=== PATIENT | male | born 1950 ===

== ENCOUNTER 2016-08-19 13:44 | Inpatient (IN) ==
--- NOTE | 2016-08-19 13:52 | Emergency Department Note ---
Disposition Clinical Impression: History of CVA (cerebrovascular accident) Altered mental status Qualifiers: Altered mental status type: unspecified Qualified Code(s): R41.82 - Altered mental status, unspecified Dementia Qualifiers: Dementia type: unspecified type Dementia behavioral disturbance: without behavioral disturbance Qualified Code(s): F03.90 - Unspecified dementia without behavioral disturbance UTI (urinary tract infection) Qualifiers: Urinary tract infection type: site unspecified Hematuria presence: without hematuria Qualified Code(s): N39.0 - Urinary tract infection, site not specified Chronic kidney disease Qualifiers: Chronic kidney disease stage: unspecified stage Qualified Code(s): N18.9 - Chronic kidney disease, unspecified Disposition: Admitted As Inpatient Condition: Fair Time of Disposition: 19:35 Altered Mental Status HPI - General Chief Complaint: ED Altered Mental Status Stated Complaint: ams Time Seen by Provider: 08/19/16 13:47 Source: EMS Mode of arrival: EMS Limitations: altered mental status Nursing Notes Reviewed: Yes Vital Signs Reviewed: Yes - History of Present Illness HPI Narrative: 66 year old male hx of dementia, CVA left hemispheric stroke presents for [facility] No information was provided upon arrival. EMS reported the patient is typically altered and [facility] was concerns of worsening altered mental status. This was reported from EMS. Patient is typically nonverbal but has been increasingly hollering. Will attempt to gather information from the [facility]. On the phone, [facility] report states the patient is altered but he is more actively altered. Patient has been more active and getting out of bed. These concern was for a repeat stroke. Patient does have a history of a CVA. Patient's last known well was approximately last night around 9:00. Patient is a full code. - Related Data Allergies Allergy/AdvReac Type Severity Reaction Status Date / Time Unable to Assess Allergy Unverified 08/19/16 14:16 Limitations: ROS unobtainable due to patients medical condition Past Medical History - Past Medical History Medical history: Reports: hypertension, renal disease Surgical history: Reports: non-contributory Psychiatric history: Reports: PTSD Physical Exam - General Limitations: altered mental status General appearance: alert, other (Patient chronically ill) - Head Head exam: normocephalic, other (Aged ecchymosis over the right maxillary and orbital) - Eye Eye exam: Present: normal appearance, EOMI. Absent: scleral icterus - ENT ENT exam: normal exam, mucous membranes moist - Neck Neck exam: Present: normal inspection, trachea midline - Chest Chest inspection: Present: normal inspection, symmetric chest wall rise. Absent : tenderness - Respiratory Respiratory exam: Present: other (Diffusely decreased breath sounds. Diminished.) - Cardiovascular Cardiovascular exam: Present: normal rhythm. Absent: systolic murmur - Abdominal Exam Abdominal exam: Present: soft, Non-Tender - Extremities Exam Extremities exam: Present: normal inspection. Absent: pedal edema - Expanded Lower Extremity Exam Neurovascular/Tendon exam: Present: normal capillary refill - Neurological Exam Neurological exam: Present: alert, other (Moves all extremities. Does not follow commands.). Absent: oriented X3 - Skin Skin exam: Present: warm, dry, intact, normal color Course Course Narrative: 66-year-old male with a history of altered mental status presents for evaluation of worsening altered mental status. [facility] Initially no history was obtained by EMS is well as patient. No family available at bedside. Patient was controlling his airway. Patient showed no immediate signs of decompensation. Patient had initial blood sugar which was non-concerning. [facility]oke with the [facility] regarding patient's past medical history and their concerns. Their concern was that the patient possibly had another stroke. Patient does have a history of CVA. Last known well was last night at 9 PM. Patient will get altered metal status workup including a head CT, lab work urinalysis chest x-ray EKG. Disposition is pending. - Reevaluation(s) Reevaluation #1: No change in patient condition. Time: 15:31 Reevaluation #2: Just obtained med list from the [facility]. Time: 16:58 Reevaluation #3: Awaiting the results of the cath U/A Time: 18:29 Vital Signs Temperature 96.8 F L 08/19/16 13:46 Pulse Rate 76 08/19/16 13:46 Respiratory Rate 18 08/19/16 13:46 Blood Pressure 127/91 08/19/16 13:46 O2 Sat by Pulse Oximetry 95 08/19/16 13:46 Temperature 96.8 F L 08/19/16 13:46 Pulse Rate 76 08/19/16 18:03 Respiratory Rate 18 08/19/16 19:40 Blood Pressure 117/72 08/19/16 19:40 O2 Sat by Pulse Oximetry 97 08/19/16 18:03 Oxygen Delivery Oxygen Delivery Room Air Altered Mental Status - Lab Data Result diagrams: 08/19/16 15:17 08/19/16 15:17 Lab Results 08/19/16 08/19/16 08/19/16 Range/Units 13:48 15:17 15:17 WBC 5.6 (4.3-11.1) K/mcL RBC 3.48 L (4.19-5.50) M/mcL Hgb 9.8 L (12.9-16.9) g/dL Hct 33.3 L (37.5-50.1) % MCV 95.7 (83.0-100.0) fL MCH 28.2 (28.0-33.3) pg MCHC 29.4 L (31.6-35.5) g/dL RDW 13.5 (11.5-14.5) % Plt Count 245 (140-400) K/mcL MPV 10.4 (9.4-12.4) fL Immature Gran % 0.5 (0-4) % Seg Neutrophils % 69.9 % Lymphocytes % 18.8 % Monocytes % 8.6 % Eosinophils % 1.8 % Basophils % 0.4 % Neutrophils # 3.9 (1.6-8.9) K/mcL Lymphocytes # 1.1 (0.6-4.6) K/mcL Monocytes # 0.5 (0.0-1.3) K/mcL Eosinophils # 0.1 (0.0-0.6) K/mcL Basophils # 0.0 (0.0-0.2) K/mcL PT 13.0 H (9.4-12.1) Seconds INR 1.2 Sodium (136-145) mEq/L Potassium (3.5-4.5) mEq/L Chloride (98-109) mEq/L Carbon Dioxide (19-29) mEq/L BUN (8-26) mg/dL Creatinine (0.72-1.25) mg/dL Est GFR ( Amer) (> 60) Est GFR (Non-Af Amer) (> 60) BUN/Creatinine Ratio (6-26) Glucose (70-99) mg/dL POC Glucose 129 H (58-89) Calculated Osmolality (280-300) Calcium (8.6-10.8) mg/dL Total Bilirubin (0.2-1.2) mg/dL Direct Bilirubin (0.0-0.5) mg/dL Indirect Bilirubin (0.0-1.2) mg/dL AST (5-34) Units/L ALT (0-55) Units/L Alkaline Phosphatase (38-126) Units/L Ammonia (18-72) mcmol/L Troponin I (0-0.03) ng/mL Serum Total Protein (6.0-8.3) g/dL Albumin (3.5-5.0) g/dL Globulin (2.4-3.5) g/dL Albumin/Globulin Ratio (1.1-2.2) Urine Color (Yellow) Urine Clarity (Clear) Urine pH (5.0-8.0) pH Units Ur Specific [place]ola (1.010-1.025) Urine Protein (Neg-Trace) mg/dL Urine Glucose (UA) (Normal) mg/dL Urine Ketones (Negative) mg/dL Urine Blood (Negative) Urine Nitrite (Negative) Urine Bilirubin (Negative) Urine Urobilinogen (Normal) mg/dL Ur Leukocyte Esterase (Negative) Urine Microscopic RBC (0-3) per hpf Urine Microscopic WBC (0-3) per hpf Ur Squamous Epith Cells (None-Few) per lpf Urine Bacteria (None-Few) per hpf Hyaline Casts (None-Few) per lpf Urine Yeast Ur Culture Indicated? (NO) Urine Opiates Screen (Ctetgl=486) ng/mL Ur Barbiturates Screen (Utnzws=678) ng/mL Valproic Acid (50-100) mcg/mL Ur Phencyclidine Scrn (Cutoff=25) ng/mL Ur Amphetamines Screen (Kizvkx=3442) ng/mL U Benzodiazepines Scrn (Rbaxba=591) ng/mL Urine Cocaine Screen (Cutoff= 300) ng/mL U Marijuana (THC) Screen (Cutoff = 50) ng/mL Ethyl Alcohol (0-10) mg/dL 08/19/16 08/19/16 08/19/16 Range/Units 15:17 15:17 17:25 WBC (4.3-11.1) K/mcL RBC (4.19-5.50) M/mcL Hgb (12.9-16.9) g/dL Hct (37.5-50.1) % MCV (83.0-100.0) fL MCH (28.0-33.3) pg MCHC (31.6-35.5) g/dL RDW (11.5-14.5) % Plt Count (140-400) K/mcL MPV (9.4-12.4) fL Immature Gran % (0-4) % Seg Neutrophils % % Lymphocytes % % Monocytes % % Eosinophils % % Basophils % % Neutrophils # (1.6-8.9) K/mcL Lymphocytes # (0.6-4.6) K/mcL Monocytes # (0.0-1.3) K/mcL Eosinophils # (0.0-0.6) K/mcL Basophils # (0.0-0.2) K/mcL PT (9.4-12.1) Seconds INR Sodium 143 (136-145) mEq/L Potassium 5.0 H (3.5-4.5) mEq/L Chloride 106 (98-109) mEq/L Carbon Dioxide 27 (19-29) mEq/L BUN 38 H (8-26) mg/dL Creatinine 3.19 H (0.72-1.25) mg/dL Est GFR ( Amer) 24 L (> 60) Est GFR (Non-Af Amer) 19 L (> 60) BUN/Creatinine Ratio 12 (6-26) Glucose 90 (70-99) mg/dL POC Glucose (58-89) Calculated Osmolality 305 H (280-300) Calcium 9.4 (8.6-10.8) mg/dL Total Bilirubin 0.7 (0.2-1.2) mg/dL Direct Bilirubin 0.3 (0.0-0.5) mg/dL Indirect Bilirubin 0.4 (0.0-1.2) mg/dL AST 7 (5-34) Units/L ALT 6 (0-55) Units/L Alkaline Phosphatase 113 (38-126) Units/L Ammonia 16 L (18-72) mcmol/L Troponin I 0.04 H* (0-0.03) ng/mL Serum Total Protein 6.4 (6.0-8.3) g/dL Albumin 2.3 L (3.5-5.0) g/dL Globulin 4.1 H (2.4-3.5) g/dL Albumin/Globulin Ratio 0.6 L (1.1-2.2) Urine Color (Yellow) Urine Clarity (Clear) Urine pH (5.0-8.0) pH Units Ur Specific [place] (1.010-1.025) Urine Protein (Neg-Trace) mg/dL Urine Glucose (UA) (Normal) mg/dL Urine Ketones (Negative) mg/dL Urine Blood (Negative) Urine Nitrite (Negative) Urine Bilirubin (Negative) Urine Urobilinogen (Normal) mg/dL Ur Leukocyte Esterase (Negative) Urine Microscopic RBC (0-3) per hpf Urine Microscopic WBC (0-3) per hpf Ur Squamous Epith Cells (None-Few) per lpf Urine Bacteria (None-Few) per hpf Hyaline Casts (None-Few) per lpf Urine Yeast Ur Culture Indicated? (NO) Urine Opiates Screen (Jkucpm=436) ng/mL Ur Barbiturates Screen (Uemaal=263) ng/mL Valproic Acid (50-100) mcg/mL Ur Phencyclidine Scrn (Cutoff=25) ng/mL Ur Amphetamines Screen (Fprouy=7251) ng/mL U Benzodiazepines Scrn (Dzegwe=416) ng/mL Urine Cocaine Screen (Cutoff= 300) ng/mL U Marijuana (THC) Screen (Cutoff = 50) ng/mL Ethyl Alcohol < 10 (0-10) mg/dL 08/19/16 08/19/16 08/19/16 Range/Units 17:25 18:34 18:34 WBC (4.3-11.1) K/mcL RBC (4.19-5.50) M/mcL Hgb (12.9-16.9) g/dL Hct (37.5-50.1) % MCV (83.0-100.0) fL MCH (28.0-33.3) pg MCHC (31.6-35.5) g/dL RDW (11.5-14.5) % Plt Count (140-400) K/mcL MPV (9.4-12.4) fL Immature Gran % (0-4) % Seg Neutrophils % % Lymphocytes % % Monocytes % % Eosinophils % % Basophils % % Neutrophils # (1.6-8.9) K/mcL Lymphocytes # (0.6-4.6) K/mcL Monocytes # (0.0-1.3) K/mcL Eosinophils # (0.0-0.6) K/mcL Basophils # (0.0-0.2) K/mcL PT (9.4-12.1) Seconds INR Sodium (136-145) mEq/L Potassium (3.5-4.5) mEq/L Chloride (98-109) mEq/L Carbon Dioxide (19-29) mEq/L BUN (8-26) mg/dL Creatinine (0.72-1.25) mg/dL Est GFR ( Amer) (> 60) Est GFR (Non-Af Amer) (> 60) BUN/Creatinine Ratio (6-26) Glucose (70-99) mg/dL POC Glucose (58-89) Calculated Osmolality (280-300) Calcium (8.6-10.8) mg/dL Total Bilirubin (0.2-1.2) mg/dL Direct Bilirubin (0.0-0.5) mg/dL Indirect Bilirubin (0.0-1.2) mg/dL AST (5-34) Units/L ALT (0-55) Units/L Alkaline Phosphatase (38-126) Units/L Ammonia (18-72) mcmol/L Troponin I (0-0.03) ng/mL Serum Total Protein (6.0-8.3) g/dL Albumin (3.5-5.0) g/dL Globulin (2.4-3.5) g/dL Albumin/Globulin Ratio (1.1-2.2) Urine Color Yellow (Yellow) Urine Clarity Cloudy A (Clear) Urine pH 6.5 (5.0-8.0) pH Units Ur Specific Viola 1.019 (1.010-1.025) Urine Protein 100 H (Neg-Trace) mg/dL Urine Glucose (UA) Normal (Normal) mg/dL Urine Ketones Trace H (Negative) mg/dL Urine Blood Negative (Negative) Urine Nitrite Negative (Negative) Urine Bilirubin Negative (Negative) Urine Urobilinogen Normal (Normal) mg/dL Ur Leukocyte Esterase Moderate H (Negative) Urine Microscopic RBC 0-3 (0-3) per hpf Urine Microscopic WBC 30-50 H (0-3) per hpf Ur Squamous Epith Cells Moderate H (None-Few) per lpf Urine Bacteria Many H (None-Few) per hpf Hyaline Casts Few (None-Few) per lpf Urine Yeast Test Not Performed Ur Culture Indicated? YES A (NO) Urine Opiates Screen Positive H (Zybkpn=700) ng/mL Ur Barbiturates Screen Negative (Wezxla=258) ng/mL Valproic Acid 10.80 L (50-100) mcg/mL Ur Phencyclidine Scrn Negative (Cutoff=25) ng/mL Ur Amphetamines Screen Negative (Knzrkb=6724) ng/mL U Benzodiazepines Scrn Negative (Ophxds=332) ng/mL Urine Cocaine Screen Negative (Cutoff= 300) ng/mL U Marijuana (THC) Screen Negative (Cutoff = 50) ng/mL Ethyl Alcohol (0-10) mg/dL - Radiology Data Radiology results reviewed: Yes I reviewed the patient's radiology results. - EKG Data EKG attestation: Yes I reviewed and interpreted this EKG. EKG shows normal: sinus rhythm Rate: normal Rhythm: NSR [place]/QRS: normal Q waves: v1, v2 Interpretation: no acute changes, nonspecific ST-T wave changes S.B.A.R. - S.B.A.RJonah Situation: Demographics Background: Presenting Complaint Assessment: Vital Signs, Course and respsone to treatment, Patient/Family Expectation, Pertinant Lab Results Recommendation: Barrier(s) to disposition, Recommendation based on pending studies, treatments, or consults S.B.A.RJonah Report Given to: Sydney Moe Repor Time: 18:58 Attestation Statement - Attestation Attestation: I examined this patient and my medical decision-making was reviewed with the FILER HELPER/PA/Advanced Practice Nurse/Resident Physician. I agree with the documented findings, disposition and treatment plan as described except to the extent set forth below. 66-year-old male sent to the ED from the [facility] inpatient peck. Patient comes the ED with no tangible information available to us. He arrives without medication list, past medical history or recent labs. Apparently on the inpatient peck for the past 2 weeks. Today they felt that his mental status was altered from his baseline since he was not yelling as loud as normal. Patient is noncontributory to his history of present illness or past medical history He has had prior CVA according to the ambulance report. Patient is nonverbal. He is not very cooperative with examination. He is intermittently agitated which is reported to be his baseline. Oropharynx is currently is only slightly dry. Nares are clear. Conjunctiva moist. Chest clear but exam is limited given his uncooperative nature. Abdomen soft nondistended and nontender. Extremities warm and dry with bilateral lower extremity edema. Initial labs found him to be with recent renal insufficiency with a GFR of 19. Troponin was mildly elevated at 0.04. Bedside ultrasound reveals normalcy parameters to his bladder. We did obtain urine via straight catheter but no fully displaced. Several hours passed before we were able to get hold of any [facility] at which time it was revealed that he is also on Depakote so valproic acid and ammonia were added which were normal. It was also noted that he has had declining renal function over the past 2 months. He was given IV fluids. Urinalysis was suggestive of a UTI so he was given IV Rocephin. Ultimately he is admitted to the hospital for the altered mental status, renal failure and UTI.
[2016-08-19 15:24] LABS: Basophils % 0.4 %; Eosinophils # 0.1 K/mcL (0.0-0.6); Eosinophils % 1.8 %; Hematocrit 33.3 % (37.5-50.1); Hemoglobin 9.8 g/dL (12.9-16.9); Immature Granulocytes % 0.5 % (0-4); Lymphocytes # 1.1 K/mcL (0.6-4.6); Lymphocytes % 18.8 %; Mean Corpuscular HGB Conc 29.4 g/dL (31.6-35.5); Mean Corpuscular Hemoglobin 28.2 pg (28.0-33.3); Mean Corpuscular Volume 95.7 fL (83.0-100.0); Mean Platelet Volume 10.4 fL (9.4-12.4); Monocytes # 0.5 K/mcL (0.0-1.3); Monocytes % 8.6 %; Neutrophils # 3.9 K/mcL (1.6-8.9); Platelet Count 245 K/mcL (140-400); Red Blood Count 3.48 M/mcL (4.19-5.50); Red Cell Distribution Width 13.5 % (11.5-14.5); Segmented Neutrophils % 69.9 %
[2016-08-19 15:30] LABS: INR 1.2
[2016-08-19 15:39] LABS: Alanine Aminotransferase 6 Units/L (0-55); Albumin 2.3 g/dL (3.5-5.0); Albumin/Globulin Ratio 0.6 (1.1-2.2); Alkaline Phosphatase 113 Units/L (38-126); Aspartate Amino Transferase 7 Units/L (5-34); BUN/Creatinine Ratio 12 (6-26); Bilirubin,Direct 0.3 mg/dL (0.0-0.5); Bilirubin,Indirect 0.4 mg/dL (0.0-1.2); Bilirubin,Total 0.7 mg/dL (0.2-1.2); Blood Urea Nitrogen 38 mg/dL (8-26); Calcium 9.4 mg/dL (8.6-10.8); Carbon Dioxide 27 mEq/L (19-29); Chloride 106 mEq/L (98-109); Globulin 4.1 g/dL (2.4-3.5); Glucose 90 mg/dL (70-99); Osmolality,Calculated 305 (280-300); Sodium 143 mEq/L (136-145); Total Protein 6.4 g/dL (6.0-8.3); eGFR For African Americans 24 (> 60); eGFR For Non-African Americans 19 (> 60)
[2016-08-19 15:41] LABS: Ethanol < 10 mg/dL (0-10)
[2016-08-19] MEDS ORDERED: Aspirin 81 MG TAB.CHEW PO ONE (16:48)
[2016-08-19] MEDS ORDERED: 0.9 % Sodium Chloride 1,000 ML IVC ONE (17:38)
[2016-08-19 18:42] LABS: Bilirubin,Urine Negative (Negative); Blood,Urine Negative (Negative); Clarity,Urine Cloudy (Clear); Color,Urine Yellow (Yellow); Glucose,Urine (UA) Normal (Normal); Ketones,Urine Trace mg/dL (Negative); Leukocyte Esterase,Urine Moderate (Negative); Nitrite,Urine Negative (Negative); PH,Urine 6.5 pH Units (5.0-8.0); Protein,Urine 100 mg/dL (Neg-Trace); Specific Gravity,Urine 1.019 (1.010-1.025); Urobilinogen,Urine Normal (Normal)
[2016-08-19 18:45] LABS: Bacteria,Urine Many per hpf (None-Few); Hyaline Casts,Urine Few per lpf (None-Few); RBC,Urine 0-3 per hpf (0-3); Squamous Epithelial Cell,Urine Moderate per lpf (None-Few); WBC,Urine 30-50 per hpf (0-3)
[2016-08-19 18:48] LABS: Amphetamine Screen,Urine Negative ng/mL (Cutoff=1000); Barbiturate Screen,Urine Negative ng/mL (Cutoff=200); Benzodiazepines Screen,Urine Negative ng/mL (Cutoff=200); Cannabinoid Screen,Urine Negative ng/mL (Cutoff = 50); Cocaine Screen,Urine Negative ng/mL (Cutoff= 300); Opiate Screen,Urine Positive ng/mL (Cutoff=300); Phencyclidine Screen,Urine Negative ng/mL (Cutoff=25)
[2016-08-19] MEDS ORDERED: Naloxone 0.4 MG/ML INJ IVP PRN (20:12)
--- NOTE | 2016-08-19 20:32 | Internal Med History&Physical ---
Date of Encounter: 08/19/16 Time of Encounter: 20:28 Assessment and Plan (1) Altered mental status Current visit: Yes Status: Acute Patient with dementia at baseline, with reports he yells out and attempts to get out of bed. Patient is yelling out, but does respond with his name when asked who he is. He is also attempting to get out of bed. He is at high risk of falls and injury. CT of head without definite acute intracranial process. Patient with UTI as likely source of AMS. Sitter at bedside 4 side rails up Fall precautions Treat UTI Monitor for improvement in status. Qualifiers: Altered mental status type: unspecified Qualified Code(s): R41.82 - Altered mental status, unspecified (2) History of CVA (cerebrovascular accident) Current visit: Yes Status: Acute Patient with history of CVA with residual left sided deficit. He is on a pureed , honey thick-liquid diet. He takes his medications crushed in applesauce and will need assistance with feeding. sitter at bedside. (3) UTI (urinary tract infection) Current visit: Yes Status: Acute Patient presented with altered mental status. UA consistent with UTI. WBC count normal at 5.6. Patient is afebrile. IV Rocephin Daily IV fluids 0.9NS at 100mL/hr Qualifiers: Urinary tract infection type: site unspecified Hematuria presence: without hematuria Qualified Code(s): N39.0 - Urinary tract infection, site not specified (4) Chronic kidney disease Current visit: Yes Status: Acute Patient with stage 4 CKD. No previous labs available for baseline comparison. Creatinine today is 3.19, consistent with stage 4 disease. Chemistry daily. Qualifiers: Chronic kidney disease stage: stage 4 (severe) Qualified Code(s): N18.4 - Chronic kidney disease, stage 4 (severe) (5) DVT prophylaxis Current visit: Yes Status: Acute anti-embolic stockings Patient at high fall risk, pharmacologic prophylaxis is contraindicated. Internal Medicine - H&P: HPI Chief complaint: AMS Admitted From: Emergency Dept Plans for Post Hospital Care: Home History of present illness: Mr. Falcon is a 66 year old male with history of hypertension, CAD stage IV, COPD , history of CVA with left-sided residual, dementia who was sent from his senior care for altered mental status. On review of the records patient's baseline he is only oriented to self, does respond to verbal stimuli but does not follow commands, yells out, and attempts to get out of his bed. The altered mental status seems to be described as he was yelling even more than usual and did not seem like himself. Review of symptoms is unable to be assessed due to patient's mental status. Evaluation in the emergency department included a CT there was motion limited but showed a right frontal scalp soft tissue swelling, atrophy and small vessel ischemic disease, without definite acute intracranial process. UA was consistent with urinary tract infection. Troponin was mildly elevated at 0.04 in the setting of chronic kidney disease, EKG showed normal sinus rhythm with some nonspecific ST changes. Creatinine was 3.19, patient with diagnosis of CKD stage IV, but baseline creatinine is unavailable. He was hyperkalemic with potassium of 5.0. On exam, patient alert, oriented to person, does not follow commands. Heart has regular rate and rhythm. Abdomen nontender. Lungs clear to auscultation. Patient does have ecchymosis around his right eye, appears a day or two old. Tongue has multiple purple blisters, appears deviated to left and as though patient bites or chews his tongue. Past Med Surg Social Fam HX - Past Medical History Medical history: hypertension, renal disease Psychiatric history: PTSD - Past Surgical History Surgical History: non-contributory - Social History Smoking Status: Unknown if ever smoked Smokeless Tobacco Status: () Alcohol use: unknown Drug use: unknown Internal Medicine - H&P: Meds Allergies lisinopril Allergy (Verified 08/19/16 20:55) See Comments unknown reactions, pt unable to answer. [facility]. ROS unobtainable: due to mental status All Systems PM: A 10-system review of systems was performed and is negative for pertinent findings except as documented above in the HPI. - Constitutional Vitals: Temp Pulse Resp BP Pulse Ox 96.8 F L 76 18 117/72 97 08/19/16 13:46 08/19/16 18:03 08/19/16 19:40 08/19/16 19:40 08/19/16 18:03 General appearance: Present: A&O X 1. Absent: answers questions appropriately - Head Head exam: Present: atraumatic, normocephalic - Eye Eye exam: Present: PERRL, conjuntiva pink, sclera anicteric Pupils: Present: PERRL - Neck Neck exam general surgery: Present: supple, trachea midline. Absent: lymphadenopathy - Respiratory Respiratory exam: Present: decreased breath sounds. Absent: accessory muscle use, rales, rhonchi, wheezes - Cardiovascular Cardiovascular exam: Present: RRR, +S1, +S2. Absent: diastolic murmur, gallop, rubs, systolic murmur - GI/Abdominal GI/Abdominal exam: Present: normal bowel sounds, soft, no peritoneal signs. Absent: distended, tenderness - Extremities Exam Extremities exam: Present: warm, radial pulses palpable and symetrical. Absent : calf tenderness, cyanotic, pedal edema - Neurological Exam Neurological exam: Present: speech deficit - Expanded Neurological Exam Patient oriented to: Present: person Cranial Nerves: tongue deviation PM: Abnormal Left - Skin Skin exam: Present: dry, intact Internal Med - H&P Results - Labs CBC & Chem 7: 08/19/16 15:17 08/19/16 15:17 Labs: All Lab Results (24 Hours) 08/19/16 08/19/16 08/19/16 Range/Units 13:48 15:17 15:17 WBC 5.6 (4.3-11.1) K/mcL RBC 3.48 L (4.19-5.50) M/mcL Hgb 9.8 L (12.9-16.9) g/dL Hct 33.3 L (37.5-50.1) % MCV 95.7 (83.0-100.0) fL MCH 28.2 (28.0-33.3) pg MCHC 29.4 L (31.6-35.5) g/dL RDW 13.5 (11.5-14.5) % Plt Count 245 (140-400) K/mcL MPV 10.4 (9.4-12.4) fL Immature Gran % 0.5 (0-4) % Seg Neutrophils % 69.9 % Lymphocytes % 18.8 % Monocytes % 8.6 % Eosinophils % 1.8 % Basophils % 0.4 % Neutrophils # 3.9 (1.6-8.9) K/mcL Lymphocytes # 1.1 (0.6-4.6) K/mcL Monocytes # 0.5 (0.0-1.3) K/mcL Eosinophils # 0.1 (0.0-0.6) K/mcL Basophils # 0.0 (0.0-0.2) K/mcL PT 13.0 H (9.4-12.1) Seconds INR 1.2 Sodium (136-145) mEq/L Potassium (3.5-4.5) mEq/L Chloride (98-109) mEq/L Carbon Dioxide (19-29) mEq/L BUN (8-26) mg/dL Creatinine (0.72-1.25) mg/dL Est GFR ( Amer) (> 60) Est GFR (Non-Af Amer) (> 60) BUN/Creatinine Ratio (6-26) Glucose (70-99) mg/dL POC Glucose 129 H (58-89) Calculated Osmolality (280-300) Calcium (8.6-10.8) mg/dL Total Bilirubin (0.2-1.2) mg/dL Direct Bilirubin (0.0-0.5) mg/dL Indirect Bilirubin (0.0-1.2) mg/dL AST (5-34) Units/L ALT (0-55) Units/L Alkaline Phosphatase (38-126) Units/L Ammonia (18-72) mcmol/L Troponin I (0-0.03) ng/mL Serum Total Protein (6.0-8.3) g/dL Albumin (3.5-5.0) g/dL Globulin (2.4-3.5) g/dL Albumin/Globulin Ratio (1.1-2.2) Urine Color (Yellow) Urine Clarity (Clear) Urine pH (5.0-8.0) pH Units Ur Specific North (1.010-1.025) Urine Protein (Neg-Trace) mg/dL Urine Glucose (UA) (Normal) mg/dL Urine Ketones (Negative) mg/dL Urine Blood (Negative) Urine Nitrite (Negative) Urine Bilirubin (Negative) Urine Urobilinogen (Normal) mg/dL Ur Leukocyte Esterase (Negative) Urine Microscopic RBC (0-3) per hpf Urine Microscopic WBC (0-3) per hpf Ur Squamous Epith Cells (None-Few) per lpf Urine Bacteria (None-Few) per hpf Hyaline Casts (None-Few) per lpf Urine Yeast Ur Culture Indicated? (NO) Urine Opiates Screen (Wbnvci=702) ng/mL Ur Barbiturates Screen (Ohbtpf=833) ng/mL Valproic Acid (50-100) mcg/mL Ur Phencyclidine Scrn (Cutoff=25) ng/mL Ur Amphetamines Screen (Fbhbuq=4162) ng/mL U Benzodiazepines Scrn (Cinybq=881) ng/mL Urine Cocaine Screen (Cutoff= 300) ng/mL U Marijuana (THC) Screen (Cutoff = 50) ng/mL Ethyl Alcohol (0-10) mg/dL 08/19/16 08/19/16 08/19/16 Range/Units 15:17 15:17 17:25 WBC (4.3-11.1) K/mcL RBC (4.19-5.50) M/mcL Hgb (12.9-16.9) g/dL Hct (37.5-50.1) % MCV (83.0-100.0) fL MCH (28.0-33.3) pg MCHC (31.6-35.5) g/dL RDW (11.5-14.5) % Plt Count (140-400) K/mcL MPV (9.4-12.4) fL Immature Gran % (0-4) % Seg Neutrophils % % Lymphocytes % % Monocytes % % Eosinophils % % Basophils % % Neutrophils # (1.6-8.9) K/mcL Lymphocytes # (0.6-4.6) K/mcL Monocytes # (0.0-1.3) K/mcL Eosinophils # (0.0-0.6) K/mcL Basophils # (0.0-0.2) K/mcL PT (9.4-12.1) Seconds INR Sodium 143 (136-145) mEq/L Potassium 5.0 H (3.5-4.5) mEq/L Chloride 106 (98-109) mEq/L Carbon Dioxide 27 (19-29) mEq/L BUN 38 H (8-26) mg/dL Creatinine 3.19 H (0.72-1.25) mg/dL Est GFR ( Amer) 24 L (> 60) Est GFR (Non-Af Amer) 19 L (> 60) BUN/Creatinine Ratio 12 (6-26) Glucose 90 (70-99) mg/dL POC Glucose (58-89) Calculated Osmolality 305 H (280-300) Calcium 9.4 (8.6-10.8) mg/dL Total Bilirubin 0.7 (0.2-1.2) mg/dL Direct Bilirubin 0.3 (0.0-0.5) mg/dL Indirect Bilirubin 0.4 (0.0-1.2) mg/dL AST 7 (5-34) Units/L ALT 6 (0-55) Units/L Alkaline Phosphatase 113 (38-126) Units/L Ammonia 16 L (18-72) mcmol/L Troponin I 0.04 H* (0-0.03) ng/mL Serum Total Protein 6.4 (6.0-8.3) g/dL Albumin 2.3 L (3.5-5.0) g/dL Globulin 4.1 H (2.4-3.5) g/dL Albumin/Globulin Ratio 0.6 L (1.1-2.2) Urine Color (Yellow) Urine Clarity (Clear) Urine pH (5.0-8.0) pH Units Ur Specific North (1.010-1.025) Urine Protein (Neg-Trace) mg/dL Urine Glucose (UA) (Normal) mg/dL Urine Ketones (Negative) mg/dL Urine Blood (Negative) Urine Nitrite (Negative) Urine Bilirubin (Negative) Urine Urobilinogen (Normal) mg/dL Ur Leukocyte Esterase (Negative) Urine Microscopic RBC (0-3) per hpf Urine Microscopic WBC (0-3) per hpf Ur Squamous Epith Cells (None-Few) per lpf Urine Bacteria (None-Few) per hpf Hyaline Casts (None-Few) per lpf Urine Yeast Ur Culture Indicated? (NO) Urine Opiates Screen (Xzkgiz=923) ng/mL Ur Barbiturates Screen (Tatwdt=432) ng/mL Valproic Acid (50-100) mcg/mL Ur Phencyclidine Scrn (Cutoff=25) ng/mL Ur Amphetamines Screen (Iirufp=4558) ng/mL U Benzodiazepines Scrn (Spvdkg=551) ng/mL Urine Cocaine Screen (Cutoff= 300) ng/mL U Marijuana (THC) Screen (Cutoff = 50) ng/mL Ethyl Alcohol < 10 (0-10) mg/dL 08/19/16 08/19/16 08/19/16 Range/Units 17:25 18:34 18:34 WBC (4.3-11.1) K/mcL RBC (4.19-5.50) M/mcL Hgb (12.9-16.9) g/dL Hct (37.5-50.1) % MCV (83.0-100.0) fL MCH (28.0-33.3) pg MCHC (31.6-35.5) g/dL RDW (11.5-14.5) % Plt Count (140-400) K/mcL MPV (9.4-12.4) fL Immature Gran % (0-4) % Seg Neutrophils % % Lymphocytes % % Monocytes % % Eosinophils % % Basophils % % Neutrophils # (1.6-8.9) K/mcL Lymphocytes # (0.6-4.6) K/mcL Monocytes # (0.0-1.3) K/mcL Eosinophils # (0.0-0.6) K/mcL Basophils # (0.0-0.2) K/mcL PT (9.4-12.1) Seconds INR Sodium (136-145) mEq/L Potassium (3.5-4.5) mEq/L Chloride (98-109) mEq/L Carbon Dioxide (19-29) mEq/L BUN (8-26) mg/dL Creatinine (0.72-1.25) mg/dL Est GFR ( Amer) (> 60) Est GFR (Non-Af Amer) (> 60) BUN/Creatinine Ratio (6-26) Glucose (70-99) mg/dL POC Glucose (58-89) Calculated Osmolality (280-300) Calcium (8.6-10.8) mg/dL Total Bilirubin (0.2-1.2) mg/dL Direct Bilirubin (0.0-0.5) mg/dL Indirect Bilirubin (0.0-1.2) mg/dL AST (5-34) Units/L ALT (0-55) Units/L Alkaline Phosphatase (38-126) Units/L Ammonia (18-72) mcmol/L Troponin I (0-0.03) ng/mL Serum Total Protein (6.0-8.3) g/dL Albumin (3.5-5.0) g/dL Globulin (2.4-3.5) g/dL Albumin/Globulin Ratio (1.1-2.2) Urine Color Yellow (Yellow) Urine Clarity Cloudy A (Clear) Urine pH 6.5 (5.0-8.0) pH Units Ur Specific North 1.019 (1.010-1.025) Urine Protein 100 H (Neg-Trace) mg/dL Urine Glucose (UA) Normal (Normal) mg/dL Urine Ketones Trace H (Negative) mg/dL Urine Blood Negative (Negative) Urine Nitrite Negative (Negative) Urine Bilirubin Negative (Negative) Urine Urobilinogen Normal (Normal) mg/dL Ur Leukocyte Esterase Moderate H (Negative) Urine Microscopic RBC 0-3 (0-3) per hpf Urine Microscopic WBC 30-50 H (0-3) per hpf Ur Squamous Epith Cells Moderate H (None-Few) per lpf Urine Bacteria Many H (None-Few) per hpf Hyaline Casts Few (None-Few) per lpf Urine Yeast Test Not Performed Ur Culture Indicated? YES A (NO) Urine Opiates Screen Positive H (Kwhnun=292) ng/mL Ur Barbiturates Screen Negative (Mhpvui=574) ng/mL Valproic Acid 10.80 L (50-100) mcg/mL Ur Phencyclidine Scrn Negative (Cutoff=25) ng/mL Ur Amphetamines Screen Negative (Wzekkr=7961) ng/mL U Benzodiazepines Scrn Negative (Axfooy=384) ng/mL Urine Cocaine Screen Negative (Cutoff= 300) ng/mL U Marijuana (THC) Screen Negative (Cutoff = 50) ng/mL Ethyl Alcohol (0-10) mg/dL - Diagnostic Studies CT scan - head Additional comments: Head CT 08/19/16 13:48 IMPRESSION: Motion limited exam demonstrating right frontal scalp soft tissue swelling. Atrophy and small vessel ischemic disease, without definite acute intracranial process. D/ / Guerrero Parikh MD / Guerrero Parikh MD Interpreting Provider: Guerrero Parikh MD Chest x-ray Additional comments: Chest X-Ray 08/19/16 13:48 IMPRESSION: 1. No acute abnormality. D/ / Aris Malik MD / Aris Malik MD Interpreting Provider: Aris Malik MD
[2016-08-19] MEDS ORDERED: Famotidine 20 MG TABLET PO SCH (21:00)
[2016-08-19] MEDS: 0.9 % Sodium Chloride 1,000 ML IVC SCH (21:07)
[2016-08-19] MEDS: risperiDONE 0.25 MG TABLET PO SCH (22:30)
[2016-08-19] MEDS: Divalproex Sodium 125 MG CAPSULE PO SCH (22:31)
[2016-08-19] MEDS ORDERED: *HR* Morphine 2 MG/ML SYRINGE IVP ONE (23:56)
[2016-08-20] MEDS: *HR* LORazepam 0.5 MG TABLET PO PRN ×3 (06:12→21:01)
[2016-08-20 06:50] LABS: Calcium 9.4 mg/dL (8.6-10.8)
[2016-08-20 07:09] LABS: Basophils % 0.4 %; Eosinophils # 0.1 K/mcL (0.0-0.6); Eosinophils % 2.3 %; Hematocrit 31.5 % (37.5-50.1); Hemoglobin 9.2 g/dL (12.9-16.9); Immature Granulocytes % 0.4 % (0-4); Lymphocytes % 20.7 %; Mean Corpuscular HGB Conc 29.2 g/dL (31.6-35.5); Mean Corpuscular Hemoglobin 28.2 pg (28.0-33.3); Mean Corpuscular Volume 96.6 fL (83.0-100.0); Mean Platelet Volume 10.9 fL (9.4-12.4); Monocytes # 0.4 K/mcL (0.0-1.3); Monocytes % 7.5 %; Neutrophils # 3.3 K/mcL (1.6-8.9); Platelet Count 263 K/mcL (140-400); Red Blood Count 3.26 M/mcL (4.19-5.50); Red Cell Distribution Width 13.4 % (11.5-14.5); Segmented Neutrophils % 68.7 %
[2016-08-20] MEDS: Famotidine 20 MG TABLET PO SCH (08:38)
[2016-08-20] MEDS: Divalproex Sodium 125 MG CAPSULE PO SCH ×3 (08:38→21:02)
[2016-08-20] MEDS: Finasteride 5 MG TABLET PO SCH (08:38)
[2016-08-20] MEDS: Aspirin 81 MG TAB.CHEW PO SCH (08:38)
--- NOTE | 2016-08-20 12:17 | Internal Med Progress Note ---
Date of Encounter: 08/20/16 Time of Encounter: 12:15 - Assessment and plan (1) UTI (urinary tract infection) Current Visit: Yes Status: Acute Assessment and plan: Patient is admitted with altered mental status on baseline dementia. Urinalysis is suggestive of UTI with moderate leukocyte esterase, 30-50 WBCs. Continue IV Rocephin and follow up urine culture. Qualifiers: Urinary tract infection type: site unspecified Hematuria presence: without hematuria Qualified Code(s): N39.0 - Urinary tract infection, site not specified (2) Chronic kidney disease Current Visit: Yes Status: Chronic Assessment and plan: Patient probably has chronic kidney disease stage IV. Unknown baseline serum creatinine, currently noted to be around 3.2. Patient was noted to have urinary retention with more than 400 mL urine on bladder scan, received Babb catheter. Continue IV hydration and monitor serum creatinine closely. Qualifiers: Chronic kidney disease stage: stage 4 (severe) Qualified Code(s): N18.4 - Chronic kidney disease, stage 4 (severe) (3) Altered mental status Current Visit: Yes Status: Acute Assessment and plan: Patient likely has underlying dementia/psychiatric condition. He is noted to be on benzodiazepines and psychotropics at the [facility] He could be having delirium due to underlying UTI at this time. Will use when necessary IV Haldol and Ativan for aggressive behavior. Continue one-on-one sitter for patient's safety. Qualifiers: Altered mental status type: delirium Qualified Code(s): R41.0 - Disorientation, unspecified (4) Dementia Current Visit: Yes Status: Chronic Qualifiers: Dementia type: unspecified type Dementia behavioral disturbance: with behavioral disturbance Qualified Code(s): F03.91 - Unspecified dementia with behavioral disturbance (5) History of CVA (cerebrovascular accident) Current Visit: Yes Status: Inactive - Subjective Interval history: Unable to provide any history; occasionally screams a few unclear words; reports pain but cannot relate the site or further details; on 1:1 watch, bangs his hands over bedrails frequently. Restless intermittently; - Constitutional Vitals: Temp Pulse Resp BP Pulse Ox 98.3 F 62 16 145/60 93 08/20/16 02:53 08/20/16 02:53 08/20/16 02:53 08/20/16 02:53 08/20/16 02:53 General appearance: Present: A&O X 0. Absent: answers questions appropriately - Respiratory Respiratory exam: Present: CTAB. Absent: accessory muscle use, rales, rhonchi, wheezes - Cardiovascular Cardiovascular exam: Present: RRR, +S1, +S2. Absent: diastolic murmur, gallop, rubs, systolic murmur - GI/Abdominal GI/Abdominal exam: Present: normal bowel sounds, soft, no peritoneal signs. Absent: distended, tenderness - Extremities Exam Extremities exam: Present: full ROM (moves all extremities spontaneously), warm , radial pulses palpable and symetrical. Absent: calf tenderness, cyanotic, pedal edema Internal Medicine: Result - Labs CBC & Chem 7: 08/20/16 06:05 08/20/16 06:05 Labs: Short CBC 08/20/16 Range/Units 06:05 WBC 4.8 (4.3-11.1) K/mcL Hgb 9.2 L (12.9-16.9) g/dL Hct 31.5 L (37.5-50.1) % Plt Count 263 (140-400) K/mcL Neutrophils # 3.3 (1.6-8.9) K/mcL BMP 08/20/16 06:05 Sodium 143 Potassium 4.0 D Chloride 106 Carbon Dioxide 30 H BUN 37 H Creatinine 3.20 H Glucose 90 Calcium 9.4 Cardiac Enzymes 08/19/16 08/20/16 Range/Units 21:06 06:05 Troponin I 0.03 0.03 (0-0.03) ng/mL - ABG Interpretation ABG results: PT/INR, D-dimer PT 13.0 Seconds (9.4-12.1) H 08/19/16 15:17 Consult Discharge Plan - Plan [facility]errals: [facility] [Primary Care Provider] -
[2016-08-20] MEDS: 0.9 % Sodium Chloride 1,000 ML IVC SCH (18:03)
[2016-08-20] MEDS: risperiDONE 0.25 MG TABLET PO SCH (21:02)
[2016-08-20] MEDS ORDERED: *HR* Morphine 2 MG/ML SYRINGE IVP ONE (21:25)
[2016-08-21 05:59] LABS: Basophils % 0.5 %; Eosinophils # 0.1 K/mcL (0.0-0.6); Eosinophils % 3.1 %; Hematocrit 28.4 % (37.5-50.1); Hemoglobin 8.6 g/dL (12.9-16.9); Immature Granulocytes % 0.5 % (0-4); Lymphocytes # 0.9 K/mcL (0.6-4.6); Mean Corpuscular HGB Conc 30.3 g/dL (31.6-35.5); Mean Corpuscular Hemoglobin 28.5 pg (28.0-33.3); Mean Platelet Volume 10.6 fL (9.4-12.4); Monocytes # 0.4 K/mcL (0.0-1.3); Monocytes % 9.2 %; Neutrophils # 2.5 K/mcL (1.6-8.9); Platelet Count 218 K/mcL (140-400); Red Blood Count 3.02 M/mcL (4.19-5.50); Red Cell Distribution Width 13.2 % (11.5-14.5); Segmented Neutrophils % 63.7 %
[2016-08-21 06:17] LABS: Calcium 9.1 mg/dL (8.6-10.8); Potassium 4.4 mEq/L (3.5-4.5)
[2016-08-21] MEDS: Divalproex Sodium 125 MG CAPSULE PO SCH ×3 (09:36→21:41)
[2016-08-21] MEDS: Aspirin 81 MG TAB.CHEW PO SCH (09:36)
[2016-08-21] MEDS: *HR* LORazepam 0.5 MG TABLET PO PRN ×3 (09:36→21:41)
[2016-08-21] MEDS: Famotidine 20 MG TABLET PO SCH (09:36)
[2016-08-21] MEDS: Finasteride 5 MG TABLET PO SCH (09:37)
[2016-08-21] MEDS: 0.9 % Sodium Chloride 1,000 ML IVC SCH ×2 (11:40→21:41)
--- NOTE | 2016-08-21 11:45 | Internal Med Progress Note ---
Date of Encounter: 08/21/16 Time of Encounter: 11:44 - Assessment and plan (1) UTI (urinary tract infection) Current Visit: Yes Status: Acute Assessment and plan: Patient is admitted with altered mental status on baseline dementia. Urinalysis is suggestive of UTI with moderate leukocyte esterase, 30-50 WBCs. Urine culture grows Morganella with intermediate sensitivity to cephalosporins. Will change antibiotics to IV Levaquin and continue to monitor. Qualifiers: Urinary tract infection type: site unspecified Hematuria presence: without hematuria Qualified Code(s): N39.0 - Urinary tract infection, site not specified (2) Chronic kidney disease Current Visit: Yes Status: Chronic Assessment and plan: Patient probably has chronic kidney disease stage IV. Unknown baseline serum creatinine, currently noted to be improving, 2.9 today. Patient received Babb catheter during this admission for urinary retention. Continue IV hydration and monitor serum creatinine closely. Qualifiers: Chronic kidney disease stage: stage 4 (severe) Qualified Code(s): N18.4 - Chronic kidney disease, stage 4 (severe) (3) Altered mental status Current Visit: Yes Status: Acute Assessment and plan: Patient likely has underlying dementia/psychiatric condition. He is noted to be on benzodiazepines and psychotropics at the [place] long-term care facility. Patient is noted to be calmer and more cooperative since admission. This is possibly his baseline mental status. No family at bedside. services advisor consult for identifying next of kin and discharge planning back to [place] [facility]. Will use when necessary IV Haldol and Ativan for aggressive behavior. Continue one-on-one sitter for patient's safety. Qualifiers: Altered mental status type: delirium Qualified Code(s): R41.0 - Disorientation, unspecified (4) Dementia Current Visit: Yes Status: Chronic Qualifiers: Dementia type: unspecified type Dementia behavioral disturbance: with behavioral disturbance Qualified Code(s): F03.91 - Unspecified dementia with behavioral disturbance (5) History of CVA (cerebrovascular accident) Current Visit: Yes Status: Inactive - Subjective Interval history: Unable to provide any history; occasionally moans/screams a few unclear words; relatively calmer today; on 1:1 watch; on Babb catheter; - Constitutional Vitals: Temp Pulse Resp BP Pulse Ox 98.2 F 71 16 151/77 94 08/21/16 07:45 08/21/16 07:45 08/21/16 07:45 08/21/16 07:45 08/21/16 07:45 General appearance: Present: A&O X 0. Absent: answers questions appropriately - Respiratory Respiratory exam: Present: CTAB. Absent: accessory muscle use, rales, rhonchi, wheezes - Cardiovascular Cardiovascular exam: Present: RRR, +S1, +S2. Absent: diastolic murmur, gallop, rubs, systolic murmur - GI/Abdominal GI/Abdominal exam: Present: normal bowel sounds, soft, no peritoneal signs. Absent: distended, tenderness Internal Medicine: Result - Labs CBC & Chem 7: 08/21/16 05:37 08/21/16 05:37 Labs: Short CBC 08/21/16 Range/Units 05:37 WBC 3.9 L (4.3-11.1) K/mcL Hgb 8.6 L (12.9-16.9) g/dL Hct 28.4 L (37.5-50.1) % Plt Count 218 (140-400) K/mcL Neutrophils # 2.5 (1.6-8.9) K/mcL BMP 08/21/16 05:37 Sodium 143 Potassium 4.4 Chloride 109 Carbon Dioxide 26 BUN 36 H Creatinine 2.95 H Glucose 99 Calcium 9.1 - ABG Interpretation ABG results: PT/INR, D-dimer PT 13.0 Seconds (9.4-12.1) H 08/19/16 15:17 Consult Discharge Plan - Plan [facility]errals: [facility] [Primary Care Provider] -
[2016-08-21] MEDS ORDERED: Levofloxacin 500 MG/100 ML 500 MG/100 ML BAG IVPB SCH (12:00)
[2016-08-21] MEDS ORDERED: Levofloxacin 250 MG/50 ML 250 MG/50 ML BAG IVPB ONE (16:51)
--- NOTE | 2016-08-21 17:13 | Electrocardiograph Report ---
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
[2016-08-21] MEDS: risperiDONE 0.25 MG TABLET PO SCH (21:41)
[2016-08-22 06:27] LABS: Albumin 2.1 g/dL (3.5-5.0); Phosphorous 3.4 mg/dL (2.3-4.7); Potassium 4.2 mEq/L (3.5-4.5)
[2016-08-22] MEDS: Famotidine 20 MG TABLET PO SCH (09:17)
[2016-08-22] MEDS: Divalproex Sodium 125 MG CAPSULE PO SCH ×3 (09:17→20:15)
[2016-08-22] MEDS: Finasteride 5 MG TABLET PO SCH (09:17)
[2016-08-22] MEDS: Aspirin 81 MG TAB.CHEW PO SCH (09:17)
[2016-08-22] MEDS: *HR* LORazepam 0.5 MG TABLET PO PRN ×3 (09:18→22:53)
[2016-08-22] MEDS: 0.9 % Sodium Chloride 1,000 ML IVC SCH ×2 (11:38→21:37)
--- NOTE | 2016-08-22 13:07 | Internal Med Progress Note ---
<Mukesh Scruggs - Last Filed: 08/22/16 13:46> Date of Encounter: 08/22/16 Time of Encounter: 13:00 - Assessment and plan (1) UTI (urinary tract infection) Current Visit: Yes Status: Acute Assessment and plan: Patient appears to have altered mental status on top of his baseline dementia. Urine culture indicates Morganella morganii infection with intermediate sensitivities. Organism has intermediate resistance to cephalosporins, intermediate resistance to ciprofloxacin, sensitive to levofloxacin, but given relation of Cipro to Levaquin will change antibiotics. Stop Levaquin Start Zosyn, dosed renally at 2.25 g every 8 hour Qualifiers: Urinary tract infection type: site unspecified Hematuria presence: without hematuria Qualified Code(s): N39.0 - Urinary tract infection, site not specified (2) Altered mental status Current Visit: Yes Status: Acute Assessment and plan: Patient is additionally agitated on top of baseline dementia. He is noted to be on benzodiazepines and psychotropics at the [place] [facility]. Patient is noted to be calmer and more cooperative since admission. This is possibly his baseline mental status. No family at bedside. director pharmacy services consult for identifying next of kin and discharge planning back to [place] [facility] Will use when necessary IV Haldol and Ativan for aggressive behavior Continue one-on-one sitter for patient's safety Qualifiers: Altered mental status type: delirium Qualified Code(s): R41.0 - Disorientation, unspecified (3) Chronic kidney disease Current Visit: Yes Status: Chronic Assessment and plan: Unknown baseline serum creatinine, currently noted to be improving, 2.67 today. Continue IV hydration and monitor serum creatinine with daily labs Renally dose medications, last calculated creatinine clearance 8 Avoid potentially nephrotoxic agents Qualifiers: Chronic kidney disease stage: stage 4 (severe) Qualified Code(s): N18.4 - Chronic kidney disease, stage 4 (severe) (4) Dementia Current Visit: Yes Status: Chronic Assessment and plan: Patient has history of dementia on several psychotropic medications as well as benzodiazepines. Unsure of reason, though history of prior CVA as well as PTSD Qualifiers: Dementia type: unspecified type Dementia behavioral disturbance: with behavioral disturbance Qualified Code(s): F03.91 - Unspecified dementia with behavioral disturbance (5) History of CVA (cerebrovascular accident) Current Visit: Yes Status: Inactive (6) DVT prophylaxis Current Visit: Yes Status: Acute Assessment and plan: 5000 units heparin subcutaneous twice a day - Subjective Interval history: Patient continues to be altered, likely delirium on top of chronic dementia. Patient continues yelling on hallway, difficult to understand an alert and oriented 0. - Constitutional Vitals: Temp Pulse Resp BP Pulse Ox 97.7 F 72 18 145/78 93 08/22/16 11:37 08/22/16 11:37 08/22/16 11:37 08/22/16 11:37 08/22/16 11:37 General appearance: Present: A&O X 0. Absent: answers questions appropriately Exam: General: Alert and oriented 0, appears agitated HEENT: Normocephalic, healing ecchymosis under the right eye, sclera anicteric, PERRL, oral mucosa moist Respiratory: No accessory muscle usage, clear to auscultation bilaterally, no wheezes/rhonchi/rales appreciated Cardiovascular: Regular rate and rhythm, S1 and S2 present, no murmurs/rubs/ gallops/clicks appreciated GI/abdominal: Nondistended, nontender, soft, normal bowel sounds, no peritoneal signs Extremities: No calf tenderness, noncyanotic, no pedal edema appreciated, warm, lower extremity pulses palpable and symmetrical Neurological: Alert and oriented 0 Skin: Dry, intact, normal color Internal Medicine: Result - Labs CBC & Chem 7: 08/21/16 05:37 08/22/16 05:49 Labs: BMP 08/22/16 05:49 Sodium 142 Potassium 4.2 Chloride 111 H Carbon Dioxide 25 BUN 30 H Creatinine 2.67 H Glucose 99 Calcium 9.0 Liver Function 08/22/16 Range/Units 05:49 Albumin 2.1 L (3.5-5.0) g/dL - ABG Interpretation ABG results: PT/INR, D-dimer PT 13.0 Seconds (9.4-12.1) H 08/19/16 15:17 Consult Discharge Plan - Plan [facility]errals[facility]Primary Care Provider[facility] - <Kerwin Andino - Last Filed: 08/22/16 17:46> Date of Encounter: 08/22/16 - Constitutional Vitals: Temp Pulse Resp BP Pulse Ox 97.5 F L 72 18 161/88 94 08/22/16 16:19 08/22/16 16:19 08/22/16 16:19 08/22/16 16:19 08/22/16 16:19 Internal Medicine: Result - Labs CBC & Chem 7: 08/21/16 05:37 08/22/16 05:49 Labs: BMP 08/22/16 05:49 Sodium 142 Potassium 4.2 Chloride 111 H Carbon Dioxide 25 BUN 30 H Creatinine 2.67 H Glucose 99 Calcium 9.0 Liver Function 08/22/16 Range/Units 05:49 Albumin 2.1 L (3.5-5.0) g/dL - ABG Interpretation ABG results: PT/INR, D-dimer PT 13.0 Seconds (9.4-12.1) H 08/19/16 15:17 - Attending Attestation I examined this patient and my medical decision-making was reviewed with the ORNAMENT STAPLER/PA/Advanced Practice Nurse/Resident Physician. I agree with the documented findings, disposition and treatment plan as described except to the extent set forth below. IV zosyn based on cultures. Agree with DR. Scruggs.
[2016-08-22] MEDS ORDERED: Piperacillin/Tazobactam 3.375 GM in D5% in Water (Mini-Bag+) 100 ML IVPB SCH ×2 (14:00→16:00)
[2016-08-22] MEDS: Piperacillin/Tazobactam 3.375 GM in D5% in Water (Mini-Bag+) 100 ML IVPB SCH ×2 (14:55→21:38)
[2016-08-22] MEDS: *HR* Heparin 5,000 UNIT/ML VIAL SQ SCH (16:46)
[2016-08-22] MEDS: risperiDONE 0.25 MG TABLET PO SCH (20:15)
[2016-08-23 04:36] LABS: Basophils % 0.5 %; Eosinophils # 0.1 K/mcL (0.0-0.6); Eosinophils % 2.1 %; Hematocrit 27.7 % (37.5-50.1); Hemoglobin 8.4 g/dL (12.9-16.9); Immature Granulocytes % 0.5 % (0-4); Lymphocytes % 23.3 %; Mean Corpuscular HGB Conc 30.3 g/dL (31.6-35.5); Mean Corpuscular Hemoglobin 28.6 pg (28.0-33.3); Mean Corpuscular Volume 94.2 fL (83.0-100.0); Mean Platelet Volume 10.9 fL (9.4-12.4); Monocytes # 0.3 K/mcL (0.0-1.3); Monocytes % 7.8 %; Neutrophils # 2.9 K/mcL (1.6-8.9); Platelet Count 211 K/mcL (140-400); Red Blood Count 2.94 M/mcL (4.19-5.50); Red Cell Distribution Width 13.4 % (11.5-14.5); Segmented Neutrophils % 65.8 %
[2016-08-23 05:18] LABS: Potassium 4.4 mEq/L (3.5-4.5)
[2016-08-23] MEDS: Piperacillin/Tazobactam 3.375 GM in D5% in Water (Mini-Bag+) 100 ML IVPB SCH ×3 (05:47→23:58)
[2016-08-23] MEDS: *HR* Heparin 5,000 UNIT/ML VIAL SQ SCH ×2 (05:48→18:22)
[2016-08-23] MEDS: 0.9 % Sodium Chloride 1,000 ML IVC SCH ×5 (05:48→18:23)
[2016-08-23] MEDS: *HR* LORazepam 0.5 MG TABLET PO PRN ×3 (05:49→18:40)
--- NOTE | 2016-08-23 09:43 | Internal Med Progress Note ---
<Mukesh Scruggs - Last Filed: 08/23/16 09:41> Date of Encounter: 08/23/16 Time of Encounter: 08:40 - Assessment and plan (1) UTI (urinary tract infection) Current Visit: Yes Status: Acute Assessment and plan: Patient appears to have altered mental status on top of his baseline dementia. Urine culture indicates Morganella morganii infection with intermediate sensitivities. Organism has intermediate resistance to cephalosporins, intermediate resistance to ciprofloxacin, sensitive to levofloxacin, but given relation of Cipro to Levaquin will change antibiotics. Continue Zosyn, dosed renally with CrCl of 29 Qualifiers: Urinary tract infection type: site unspecified Hematuria presence: without hematuria Qualified Code(s): N39.0 - Urinary tract infection, site not specified (2) Altered mental status Current Visit: Yes Status: Acute Assessment and plan: Patient is additionally agitated on top of baseline dementia. He is noted to be on benzodiazepines and psychotropics at the [place] [facility]. Patient is noted to be calmer and more cooperative since admission. This is possibly his baseline mental status. No family at bedside. retail services professional consult for identifying next of kin and discharge planning back to [place] group home Will use when necessary IV Haldol and Ativan for aggressive behavior Continue one-on-one sitter for patient's safety Qualifiers: Altered mental status type: delirium Qualified Code(s): R41.0 - Disorientation, unspecified (3) Chronic kidney disease Current Visit: Yes Status: Chronic Assessment and plan: Unknown baseline serum creatinine, currently noted to be improving, 2.41 today. Continue IV hydration and monitor serum creatinine with daily labs Renally dose medications, last calculated creatinine clearance 29 Avoid potentially nephrotoxic agents Qualifiers: Chronic kidney disease stage: stage 4 (severe) Qualified Code(s): N18.4 - Chronic kidney disease, stage 4 (severe) (4) Dementia Current Visit: Yes Status: Chronic Assessment and plan: Patient has history of dementia on several psychotropic medications as well as benzodiazepines. Unsure of reason, though history of prior CVA as well as PTSD Qualifiers: Dementia type: unspecified type Dementia behavioral disturbance: with behavioral disturbance Qualified Code(s): F03.91 - Unspecified dementia with behavioral disturbance (5) History of CVA (cerebrovascular accident) Current Visit: Yes Status: Inactive (6) DVT prophylaxis Current Visit: Yes Status: Acute Assessment and plan: 5000 units heparin subcutaneous twice a day - Subjective Interval history: Patient continues to be altered, likely delirium on top of chronic dementia. Alert and oriented x 0. Resting comfortably when entering the room, when woken his speech is nonsensical. - Constitutional Vitals: Temp Pulse Resp BP Pulse Ox 97.8 F 88 16 164/72 93 08/23/16 07:50 08/23/16 07:50 08/23/16 07:50 08/23/16 07:50 08/23/16 07:50 General appearance: Present: A&O X 0. Absent: answers questions appropriately Exam: General: Alert and oriented 0, appears agitated HEENT: Normocephalic, healing ecchymosis under the right eye, sclera anicteric, PERRL, oral mucosa moist Respiratory: No accessory muscle usage, clear to auscultation bilaterally, no wheezes/rhonchi/rales appreciated Cardiovascular: Regular rate and rhythm, S1 and S2 present, no murmurs/rubs/ gallops/clicks appreciated GI/abdominal: Nondistended, nontender, soft, normal bowel sounds, no peritoneal signs Extremities: No calf tenderness, noncyanotic, no pedal edema appreciated, warm, lower extremity pulses palpable and symmetrical Neurological: Alert and oriented 0 Skin: Dry, intact, normal color Internal Medicine: Result - Labs CBC & Chem 7: 08/23/16 04:10 08/23/16 05:02 Labs: Short CBC 08/23/16 Range/Units 04:10 WBC 4.4 (4.3-11.1) K/mcL Hgb 8.4 L (12.9-16.9) g/dL Hct 27.7 L (37.5-50.1) % Plt Count 211 (140-400) K/mcL Neutrophils # 2.9 (1.6-8.9) K/mcL BMP 08/23/16 05:02 Sodium 141 Potassium 4.4 Chloride 112 H Carbon Dioxide 22 BUN 28 H Creatinine 2.41 H Glucose 105 H Calcium 9.0 - ABG Interpretation ABG results: PT/INR, D-dimer PT 13.0 Seconds (9.4-12.1) H 08/19/16 15:17 Consult Discharge Plan - Plan [facility]errals: [facility] [Primary Care Provider] - <Kerwin Andino - Last Filed: 08/23/16 17:25> Date of Encounter: 08/23/16 - Constitutional Vitals: Temp Pulse Resp BP Pulse Ox 97.9 F 67 18 137/84 97 08/23/16 15:56 08/23/16 15:56 08/23/16 15:56 08/23/16 15:56 08/23/16 15:56 Internal Medicine: Result - Labs CBC & Chem 7: 08/23/16 04:10 08/23/16 05:02 Labs: Short CBC 08/23/16 Range/Units 04:10 WBC 4.4 (4.3-11.1) K/mcL Hgb 8.4 L (12.9-16.9) g/dL Hct 27.7 L (37.5-50.1) % Plt Count 211 (140-400) K/mcL Neutrophils # 2.9 (1.6-8.9) K/mcL BMP 08/23/16 05:02 Sodium 141 Potassium 4.4 Chloride 112 H Carbon Dioxide 22 BUN 28 H Creatinine 2.41 H Glucose 105 H Calcium 9.0 - ABG Interpretation ABG results: PT/INR, D-dimer PT 13.0 Seconds (9.4-12.1) H 08/19/16 15:17 - Attending Attestation I examined this patient and my medical decision-making was reviewed with the FASTENER TECHNOLOGIST/PA/Advanced Practice Nurse/Resident Physician. I agree with the documented findings, disposition and treatment plan as described except to the extent set forth below. UTI on zosyn. Flomax and rush placed. D/W nursing staff.
[2016-08-23] MEDS: Divalproex Sodium 125 MG CAPSULE PO SCH ×3 (10:00→20:09)
[2016-08-23] MEDS: Aspirin 81 MG TAB.CHEW PO SCH (10:00)
[2016-08-23] MEDS: Famotidine 20 MG TABLET PO SCH (10:00)
[2016-08-23] MEDS: Finasteride 5 MG TABLET PO SCH (10:00)
[2016-08-23] MEDS ORDERED: Levofloxacin 750 MG/150 ML 750 MG/150 ML BAG IVPB SCH (12:00)
[2016-08-23] MEDS: risperiDONE 0.25 MG TABLET PO SCH (20:09)
[2016-08-23] MEDS: Haloperidol Lactate 5 MG/ML VIAL IVP PRN (22:57)
[2016-08-24 05:14] LABS: Basophils % 0.8 %; Eosinophils # 0.2 K/mcL (0.0-0.6); Eosinophils % 4.2 %; Hematocrit 25.8 % (37.5-50.1); Hemoglobin 7.9 g/dL (12.9-16.9); Immature Granulocytes % 4.7 % (0-4); Lymphocytes # 1.1 K/mcL (0.6-4.6); Mean Corpuscular HGB Conc 30.6 g/dL (31.6-35.5); Mean Corpuscular Hemoglobin 28.3 pg (28.0-33.3); Mean Corpuscular Volume 92.5 fL (83.0-100.0); Mean Platelet Volume 11.3 fL (9.4-12.4); Monocytes # 0.3 K/mcL (0.0-1.3); Monocytes % 7.4 %; Neutrophils # 2.1 K/mcL (1.6-8.9); Platelet Count 151 K/mcL (140-400); Red Blood Count 2.79 M/mcL (4.19-5.50); Red Cell Distribution Width 13.4 % (11.5-14.5); Segmented Neutrophils % 54.9 %
[2016-08-24 05:26] LABS: Calcium 8.8 mg/dL (8.6-10.8); Potassium 4.2 mEq/L (3.5-4.5)
[2016-08-24] MEDS: *HR* Heparin 5,000 UNIT/ML VIAL SQ SCH ×2 (06:05→18:31)
[2016-08-24] MEDS: Piperacillin/Tazobactam 3.375 GM in D5% in Water (Mini-Bag+) 100 ML IVPB SCH ×3 (06:05→22:29)
[2016-08-24] MEDS: Aspirin 81 MG TAB.CHEW PO SCH (07:32)
[2016-08-24] MEDS: Divalproex Sodium 125 MG CAPSULE PO SCH ×3 (07:32→20:18)
[2016-08-24] MEDS: Finasteride 5 MG TABLET PO SCH (07:33)
[2016-08-24] MEDS: Famotidine 20 MG TABLET PO SCH (07:33)
[2016-08-24] MEDS: *HR* LORazepam 0.5 MG TABLET PO PRN ×2 (07:34→16:12)
[2016-08-24] MEDS: Haloperidol Lactate 5 MG/ML VIAL IVP PRN ×2 (07:35→13:07)
[2016-08-24] MEDS: 0.9 % Sodium Chloride 1,000 ML IVC SCH (07:41)
--- NOTE | 2016-08-24 10:39 | Internal Med Progress Note ---
<Mukesh Scruggs - Last Filed: 08/24/16 13:08> Date of Encounter: 08/24/16 Time of Encounter: 09:25 - Assessment and plan (1) UTI (urinary tract infection) Current Visit: Yes Status: Acute Assessment and plan: Patient appears to have altered mental status on top of his baseline dementia. Urine culture indicates Morganella morganii infection with intermediate sensitivities. Organism has intermediate resistance to cephalosporins, intermediate resistance to ciprofloxacin, sensitive to levofloxacin, but given relation of Cipro to Levaquin will change antibiotics. Continue Zosyn, dosed renally Will attempt to ascertain the patient's baseline mental status Qualifiers: Urinary tract infection type: site unspecified Hematuria presence: without hematuria Qualified Code(s): N39.0 - Urinary tract infection, site not specified (2) Altered mental status Current Visit: Yes Status: Acute Assessment and plan: Patient is additionally agitated on top of baseline dementia. He is noted to be on benzodiazepines and psychotropics at the [place] [facility]. Patient is noted to be calmer and more cooperative since admission. This is possibly his baseline mental status. No family at bedside. real estate services coordinator consult for identifying next of kin and discharge planning back to [facility] Will use when necessary IV Haldol and Ativan for aggressive behavior Continue one-on-one sitter for patient's safety, but will consider removing sitter when patient returning to baseline status Qualifiers: Altered mental status type: delirium Qualified Code(s): R41.0 - Disorientation, unspecified (3) Chronic kidney disease Current Visit: Yes Status: Chronic Assessment and plan: Unknown baseline serum creatinine, currently noted to be improving, 2.28 today. Will stop IV hydration Renally dose medications, last calculated creatinine clearance 29 Avoid potentially nephrotoxic agents Qualifiers: Chronic kidney disease stage: stage 4 (severe) Qualified Code(s): N18.4 - Chronic kidney disease, stage 4 (severe) (4) Anemia Current Visit: Yes Status: Acute Assessment and plan: Patient appears to have baseline anemia, but without prior labs, it is difficult to fully assess. Since admission his hemoglobin has been trending downwards, but he has been receiving continuous fluids since admission and his worsened anemia is likely dilutional in nature. Will stop IV fluids Continue to trend hemoglobin with daily labs Qualifiers: Anemia type: unspecified type Qualified Code(s): D64.9 - Anemia, unspecified (5) Dementia Current Visit: Yes Status: Chronic Assessment and plan: Patient has history of dementia on several psychotropic medications as well as benzodiazepines. Unsure of reason, though history of prior CVA as well as PTSD Qualifiers: Dementia type: unspecified type Dementia behavioral disturbance: with behavioral disturbance Qualified Code(s): F03.91 - Unspecified dementia with behavioral disturbance (6) History of CVA (cerebrovascular accident) Current Visit: Yes Status: Inactive (7) DVT prophylaxis Current Visit: Yes Status: Acute Assessment and plan: 5000 units heparin subcutaneous twice a day - Subjective Interval history: No significant change seen in patient mental status observed today. He is unable to contribute to his condition. Patient was agitated and aggressive earlier today requiring haldol in order to sedate. - Constitutional Vitals: Temp Pulse Resp BP Pulse Ox 97.4 F L 81 18 185/99 95 08/24/16 07:11 08/24/16 07:11 08/24/16 07:11 08/24/16 07:11 08/24/16 07:11 General appearance: Present: A&O X 0. Absent: answers questions appropriately Exam: General: Alert and oriented 0, appears agitated HEENT: Normocephalic, healing ecchymosis under the right eye, sclera anicteric, PERRL, oral mucosa moist Respiratory: No accessory muscle usage, clear to auscultation bilaterally, no wheezes/rhonchi/rales appreciated Cardiovascular: Regular rate and rhythm, S1 and S2 present, no murmurs/rubs/ gallops/clicks appreciated GI/abdominal: Nondistended, nontender, soft, normal bowel sounds, no peritoneal signs Extremities: No calf tenderness, noncyanotic, no pedal edema appreciated, warm, lower extremity pulses palpable and symmetrical Neurological: Alert and oriented 0 Skin: Dry, intact, normal color Internal Medicine: Result - Labs CBC & Chem 7: 08/24/16 05:01 08/24/16 05:01 Labs: Short CBC 08/24/16 Range/Units 05:01 WBC 3.8 L (4.3-11.1) K/mcL Hgb 7.9 L (12.9-16.9) g/dL Hct 25.8 L (37.5-50.1) % Plt Count 151 (140-400) K/mcL Neutrophils # 2.1 (1.6-8.9) K/mcL [facility] 08/24/16 05:01 Sodium 143 Potassium 4.2 Chloride 115 H Carbon Dioxide 20 BUN 25 Creatinine 2.28 H Glucose 103 H Calcium 8.8 - ABG Interpretation ABG results: PT/INR, D-dimer PT 13.0 Seconds (9.4-12.1) H 08/19/16 15:17 Consult Discharge Plan - Plan [facility]errals: [facility] [Primary Care Provider] - <Kerwin Andino - Last Filed: 08/24/16 15:54> Date of Encounter: 08/24/16 - Constitutional Vitals: Temp Pulse Resp BP Pulse Ox 97.4 F L 72 16 149/91 96 08/24/16 07:11 08/24/16 12:08 08/24/16 12:08 08/24/16 12:08 08/24/16 12:08 Internal Medicine: Result - Labs CBC & Chem 7: 08/24/16 05:01 08/24/16 05:01 Labs: Short CBC 08/24/16 Range/Units 05:01 WBC 3.8 L (4.3-11.1) K/mcL Hgb 7.9 L (12.9-16.9) g/dL Hct 25.8 L (37.5-50.1) % Plt Count 151 (140-400) K/mcL Neutrophils # 2.1 (1.6-8.9) K/mcL [facility] 08/24/16 05:01 Sodium 143 Potassium 4.2 Chloride 115 H Carbon Dioxide 20 BUN 25 Creatinine 2.28 H Glucose 103 H Calcium 8.8 - ABG Interpretation ABG results: PT/INR, D-dimer PT 13.0 Seconds (9.4-12.1) H 08/19/16 15:17 - Attending Attestation I examined this patient and my medical decision-making was reviewed with the CIVIL TRANSPORTATION ENGINEER/PA/Advanced Practice Nurse/Resident Physician. I agree with the documented findings, disposition and treatment plan as described except to the extent set forth below. UTI, continue with iv antibiotics, Continue with rush, eval with urology as outpatient, continue flomax. D/C planing, trasfer back to the [place] [facility] unit when stable. .
[2016-08-24] MEDS: risperiDONE 0.25 MG TABLET PO SCH (20:17)
[2016-08-25 06:08] LABS: Basophils % 0.6 %; Eosinophils # 0.1 K/mcL (0.0-0.6); Eosinophils % 3.5 %; Hematocrit 29.6 % (37.5-50.1); Immature Granulocytes % 0.6 % (0-4); Lymphocytes # 0.8 K/mcL (0.6-4.6); Lymphocytes % 24.7 %; Mean Corpuscular HGB Conc 30.4 g/dL (31.6-35.5); Mean Corpuscular Hemoglobin 28.4 pg (28.0-33.3); Mean Corpuscular Volume 93.4 fL (83.0-100.0); Mean Platelet Volume 10.9 fL (9.4-12.4); Monocytes # 0.3 K/mcL (0.0-1.3); Monocytes % 7.9 %; Platelet Count 202 K/mcL (140-400); Red Blood Count 3.17 M/mcL (4.19-5.50); Red Cell Distribution Width 13.6 % (11.5-14.5); Segmented Neutrophils % 62.7 %
[2016-08-25] MEDS: *HR* Heparin 5,000 UNIT/ML VIAL SQ SCH (06:17)
[2016-08-25] MEDS: Piperacillin/Tazobactam 3.375 GM in D5% in Water (Mini-Bag+) 100 ML IVPB SCH (06:20)
[2016-08-25 06:24] LABS: Calcium 9.3 mg/dL (8.6-10.8); Potassium 3.8 mEq/L (3.5-4.5)
--- NOTE | 2016-08-25 08:38 | Discharge Summary ---
<Mukesh Scruggs - Last Filed: 08/25/16 08:36> Date of Encounter: 08/25/16 Time of Encounter: 08:25 - Discharge Diagnosis (1) UTI (urinary tract infection) Priority: Primary Status: Acute Qualifiers: Urinary tract infection type: site unspecified Hematuria presence: without hematuria Qualified Code(s): N39.0 - Urinary tract infection, site not specified (2) Altered mental status Priority: Primary Status: Acute Qualifiers: Altered mental status type: delirium Qualified Code(s): R41.0 - Disorientation, unspecified (3) Chronic kidney disease Priority: Secondary Status: Chronic Qualifiers: Chronic kidney disease stage: stage 4 (severe) Qualified Code(s): N18.4 - Chronic kidney disease, stage 4 (severe) (4) Anemia Priority: Secondary Status: Acute Qualifiers: Anemia type: unspecified type Qualified Code(s): D64.9 - Anemia, unspecified (5) Dementia Priority: Primary Status: Chronic Qualifiers: Dementia type: unspecified type Dementia behavioral disturbance: with behavioral disturbance Qualified Code(s): F03.91 - Unspecified dementia with behavioral disturbance (6) DVT prophylaxis Priority: Secondary Status: Acute - Discharge Medications Prescriptions: Clhlnmlhgnfh-Xtib-Uqtnffqw,Iso [Zosyn 2.25 gm/50 ml Galaxy Bag] 2.25 gm IV Q8HR 9 Days Home Medications: Aspirin [Lo-Dose Aspirin EC] 81 mg PO DAILY 08/20/16 [History] Atorvastatin [Lipitor] 40 mg PO HS 08/20/16 [History] Bisacodyl [Dulcolax] 10 mg RC DAILY PRN 08/20/16 [History] Divalproex (12 HR) [Depakote (12 HR)] 125 mg PO TID 08/20/16 [History] Finasteride [Proscar] 5 mg PO DAILY 08/20/16 [History] Haloperidol Lactate [Haldol] 5 mg IM Q6H PRN 08/20/16 [History] Haloperidol [Haldol] 5 mg PO Q6H PRN 08/20/16 [History] LORazepam [Ativan] 0.5 mg IM Q6H PRN 08/20/16 [History] LORazepam [Ativan] 0.5 mg PO Q6H 08/20/16 [History] Magnesium Hydroxide [Milk of Magnesia] 30 ml PO BID PRN 08/20/16 [History] OxyCODONE Immed Rel [Roxicodone 5 MG] 5 mg PO Q4H PRN 08/20/16 [History] Oxycodone HCl [Oxaydo] 7.5 mg PO TID PRN 08/20/16 [History] Polyethylene Glycol 3350 [MiraLAX bowel prep] 17 gm PO DAILY 08/20/16 [History] Ranitidine HCl [Acid Biologist Aide] 150 mg PO QPM 08/20/16 [History] Sennosides/Docusate Sodium [Senna-Docusate Sodium Tablet] 2 tab PO BID PRN 08/20 [History] Tamsulosin HCl [Flomax] 0.4 mg PO BID 08/20/16 [History] risperiDONE [Risperidone] 0.5 mg PO HS 08/20/16 [History] Unxpbxbwpntz-Oqti-Ekzhmver,Iso [Zosyn 2.25 gm/50 ml Galaxy Bag] 2.25 gm IV Q8HR 9 Days 08/25/16 [Rx] Allergies/Adverse Reactions: Allergies lisinopril Allergy (Verified 08/19/16 20:55) See Comments unknown reactions, pt unable to answer. allergy found on [place] papers. Date of admission: 08/19/16 18:59 Primary care physician: PCP [place] Consults: 08/20/16 12:49 Consult to Invasive Line Access Team [CONS] Routine Reason for Consult: IV ATB Line Type: EPIV 08/21/16 08:31 Consult to Rehabilitation Center Manager [CONS] Routine Reason for SW Consult: from [place] group home Discharging clinician: Mukesh Scruggs Anticipated date of discharge: 08/25/16 - Patient Status Disposition: Transfer [facility] Condition: Fair Functional capacity at discharge: bed bound Overall status at discharge: patient is progressing back to baseline - Discharge Instructions [facility] Care Provider[facility] - Additional Instructions: Continue Zosyn for additional 9 days because of concern for complicated UTI Continue rush for additional 1-2 weeks to be reassessed by urology for removal Follow up with urology in 1-2 weeks Continue previous home medications Follow up with your PCP in 1 week - Diet and Activity Activity: resume usual activities as tolerated Diet: advance to your usual diet Interval History: Patient is doing well this morning. He is more alert than he has been and is A& Ox1, without having overt agitation. He ate most of his breakfast and appears to be doing well. Hospital course: Mr. Falcon is a 66 year old male with prior medical history of prior CVA, dementia , CKD IV, and long-term resident of the [place] group home was transferred to [facility] because of increasingly worsened mental status. He was found to have a complicated UTI that had intermediate sensitivities. Over the next several days he was treated with Zosyn and his mental status began to show some mild improvement, though with unclear baseline it is difficult to tell. He presented with presumed worsening of his renal function and over the course of his admission he received several liters of fluid with improvement of his renal function to a eGFR ~30. As of the day of discharge he has had mild improvement in his mental status and is safe/stable for discharge. He will be discharged with a rush in place because of the concern of urinary retention that contributed to his decreased renal function seen at admission. It is recommended that he sees a urologist for it to be removed in 1-2 weeks. - Time Spent with Patient Total time spent providing and/or coordinating discharge services: - Constitutional Vitals: Temp Pulse Resp BP Pulse Ox 97.5 F L 77 18 189/84 97 08/25/16 07:00 08/25/16 07:00 08/25/16 07:00 08/25/16 07:00 08/25/16 07:00 General appearance: Present: A&O X 0. Absent: answers questions appropriately Exam: General: Alert and oriented 1, he is alert and not overtly agitated HEENT: Normocephalic, healing ecchymosis under the right eye, sclera anicteric Respiratory: No accessory muscle usage, clear to auscultation bilaterally, no wheezes/rhonchi/rales appreciated Cardiovascular: Regular rate and rhythm, S1 and S2 present, no murmurs/rubs/ gallops/clicks appreciated GI/abdominal: Nondistended, nontender, soft, normal bowel sounds, no peritoneal signs Extremities: No calf tenderness, noncyanotic, no pedal edema appreciated, warm, lower extremity pulses palpable and symmetrical Neurological: Alert and oriented 1 Skin: Dry, intact, normal color <Kerwin Andino - Last Filed: 08/25/16 15:25> Date of Encounter: 08/25/16 Date of admission: 08/19/16 18:59 Primary care physician: [facility] Consults: 08/20/16 12:49 Consult to Invasive Line Access Team [CONS] Routine Reason for Consult: IV ATB Line Type: EPIV 08/21/16 08:31 Consult to Rehabilitation Center Manager [CONS] Routine Reason for SW Consult: from [place] group [facility] 08/25/16 11:14 Consult to Invasive Line Access Team [CONS] Stat Reason for Consult: IV ATB therapy Line Type: EPIV Hospital course: Mr. Falcon is a 66 year old male - Time Spent with Patient Total time spent providing and/or coordinating discharge services: - Constitutional Vitals: Temp Pulse Resp BP Pulse Ox 97.5 F L 77 18 135/78 97 08/25/16 07:00 08/25/16 07:00 08/25/16 07:00 08/25/16 10:57 08/25/16 07:00 - Attending Attestation I examined this patient and my medical decision-making was reviewed with the MERCURY WASHER/PA/Advanced Practice Nurse/Resident Physician. I agree with the documented findings, disposition and treatment plan as described except to the extent set forth below. UTI, complete treatment with zosyn. [facility] Agree with Dr. Scruggs.
[2016-08-25] MEDS: Divalproex Sodium 125 MG CAPSULE PO SCH (09:29)
[2016-08-25] MEDS: Finasteride 5 MG TABLET PO SCH (09:29)
[2016-08-25] MEDS: Aspirin 81 MG TAB.CHEW PO SCH (09:29)
[2016-08-25] MEDS: Famotidine 20 MG TABLET PO SCH (09:29)
[2016-08-25 10:57] VITALS: BP 135/78
== END 2016-08-25 12:18 | DRG 689 ==
LOC: EMEROO 13:44 → 3ANU 18:59 → SUATTDRO 18:59 → 3ANU 19:54
PROVIDERS: ADMIT Internal Medicine; ATTEND Internal Medicine

== ENCOUNTER 2016-10-28 21:44 | Inpatient (IN) ==
--- NOTE | 2016-10-28 22:03 | Emergency Department Note ---
Disposition Clinical Impression: Healthcare-associated pneumonia, Hypoxia Altered mental status Qualifiers: Altered mental status type: unspecified Qualified Code(s): R41.82 - Altered mental status, unspecified Chronic kidney disease Qualifiers: Chronic kidney disease stage: unspecified stage Qualified Code(s): N18.9 - Chronic kidney disease, unspecified UTI (urinary tract infection) Qualifiers: Urinary tract infection type: site unspecified Hematuria presence: without hematuria Qualified Code(s): N39.0 - Urinary tract infection, site not specified Disposition: Admitted As Inpatient Condition: Fair [facility] Provider[facility] - Forms: ED Satisfaction Letter General Adult HPI - General Chief complaint: ED Shortness of Breath/Dyspnea Stated complaint: Fever/SOB/AMS Time Seen by Provider: 10/28/16 21:47 Source: EMS Limitations: no limitations - History of Present Illness HPI Narrative: 66-year-old male history of diabetes, anemia, renal disease who [facility] due to fever, tachycardia, shortness of breath. [facility] reports that the [facility] stated that he was below his usual baseline status. They also reported hypoxia they are that required nasal cannula. No other information was obtained prior to arrival. The patient presents nonverbal and not following commands and no one is sure if this is his baseline. He is unable to provide any history of his own. Pt Subjective Complaint: fever, altered mental status, dyspnea Onset (ago): unknown Pain Scale: 5 Improves with: nothing Worsens with: nothing Associated symptoms: Reports: cough, fever/chills, shortness of breath Treatments Prior to Arrival: other (IV fluids) - Related Data Home Medications Medication Instructions Recorded Confirmed Aspirin [Lo-Dose Aspirin EC] 81 mg PO DAILY 08/20/16 08/20/16 Atorvastatin [Lipitor] 40 mg PO HS 08/20/16 08/20/16 Bisacodyl [Dulcolax] 10 mg RC DAILY PRN 08/20/16 08/20/16 Divalproex (12 HR) [Depakote (12 125 mg PO TID 08/20/16 08/20/16 HR)] Finasteride [Proscar] 5 mg PO DAILY 08/20/16 08/20/16 Haloperidol Lactate [Haldol] 5 mg IM Q6H PRN 08/20/16 08/20/16 Haloperidol [Haldol] 5 mg PO Q6H PRN 08/20/16 08/20/16 LORazepam [Ativan] 0.5 mg IM Q6H PRN 08/20/16 08/20/16 LORazepam [Ativan] 0.5 mg PO Q6H 08/20/16 08/20/16 Magnesium Hydroxide [Milk of 30 ml PO BID PRN 08/20/16 08/20/16 Magnesia] OxyCODONE Immed Rel [Roxicodone 5 5 mg PO Q4H PRN 08/20/16 08/20/16 MG] Oxycodone HCl [Oxaydo] 7.5 mg PO TID PRN 08/20/16 08/20/16 Polyethylene Glycol 3350 [MiraLAX 17 gm PO DAILY 08/20/16 08/20/16 bowel prep] Ranitidine HCl [Acid Emergency Technician] 150 mg PO QPM 08/20/16 08/20/16 Sennosides/Docusate Sodium 2 tab PO BID PRN 08/20/16 08/20/16 [Senna-Docusate Sodium Tablet] Tamsulosin HCl [Flomax] 0.4 mg PO BID 08/20/16 08/20/16 risperiDONE [Risperidone] 0.5 mg PO HS 08/20/16 08/20/16 Previous Rx's Medication Instructions Recorded Goqvjwdoveef-[id number]-Xkkzmpiz,Iso 2.25 gm IV Q8HR 9 Days 08/25/16 [Zosyn 2.25 gm/50 ml Galaxy Bag] Allergies Allergy/AdvReac Type Severity Reaction Status Date / Time lisinopril Allergy See Verified 08/19/16 20:55 Comments Limitations: ROS unobtainable due to patients medical condition Past Medical History - Past Medical History Attestation: Yes The following information was validated with the patient. Source: old records reviewed Medical history: Reports: coronary artery disease, CVA, dementia, diabetes, GERD , hypertension, renal disease Surgical history: Reports: non-contributory Psychiatric history: Reports: PTSD - Social History Smoking Status: Unknown if ever smoked Smokeless Tobacco Status: (uk) Alcohol use: Reports: unknown Drug use: Reports: unknown Physical Exam - General Limitations: altered mental status General appearance: lethargic - Head Head exam: atraumatic, normocephalic, normal inspection - Eye Eye exam: Present: normal appearance - ENT ENT exam: normal exam, mucous membranes dry - Neck Neck exam: Present: normal inspection - Chest Chest inspection: Present: normal inspection, symmetric chest wall rise - Respiratory Respiratory exam: Present: other (rhonchorous breath sounds bilaterally) - Cardiovascular Cardiovascular exam: Present: normal rhythm, tachycardia, normal heart sounds - Abdominal Exam Abdominal exam: Present: soft. Absent: distention, guarding, rigidity - Extremities Exam Extremities exam: Present: normal inspection - Expanded Upper Extremity Exam Shoulder exam: Present: normal inspection Arm exam: Present: normal inspection Elbow exam: Present: normal inspection Forearm/Wrist exam: Present: normal inspection Hand exam: Present: normal inspection - Expanded Lower Extremity Exam Hip/Pelvis exam: Present: normal inspection Upper leg exam: Present: normal inspection Knee exam: Present: normal inspection Lower leg exam: Present: normal inspection Ankle exam: Present: normal inspection Foot/toe exam: Present: normal inspection - Neurological Exam Neurological exam: Present: alert, other (Does not follow commands. Nonverbal on exam.) - Skin Skin exam: Present: warm, dry, intact, normal color Course Course Narrative: Patient seen and examined the time of arrival. Tachycardic with a stable blood pressure. Hypoxic and placed on nasal cannula. He is nonverbal and unable to provide any history. We will obtain a CT of his head, chest x-ray, EKG, labs including lactate and blood cultures. - Reevaluation(s) Reevaluation #1: We did speak with the nursing facility who reports that at his baseline he is usually conversational and alert. They do also report that he fell today and he is on aspirin. They also state that he is a full code. Vital Signs Temperature 99.5 F 10/28/16 21:46 Pulse Rate 118 10/28/16 21:46 Respiratory Rate 22 10/28/16 21:46 Blood Pressure 160/87 10/28/16 21:46 O2 Sat by Pulse Oximetry 91 10/28/16 21:46 Temperature 101.3 F H 10/28/16 22:40 Pulse Rate 98 10/28/16 23:33 Respiratory Rate 20 10/28/16 23:33 Blood Pressure 125/79 10/28/16 23:33 O2 Sat by Pulse Oximetry 100 10/28/16 23:33 Oxygen Delivery Oxygen Delivery Venti Mask Medical Decision Making - [facility] Narrative Medical decision making narrative: 66-year-old male presents from nursing facility due to fever tachycardia and hypoxia. Found to have retrocardiac infiltrate on chest x-ray. Tachycardic and febrile which is improved after Tylenol and IV fluids. Lactate is normal. Urinalysis does appear to show UTI as well. Patient will be treated with vancomycin and cefepime and Levaquin. It was reported that he fell earlier today with head CT and C-spine being negative. Patient admitted to the hospitalist service for further management. - Lab Data Lab results reviewed: Yes I reviewed the patient's lab results. Result diagrams: 10/28/16 22:00 10/28/16 22:00 Lab Results 10/28/16 10/28/16 10/28/16 Range/Units 22:00 22:00 22:00 WBC 9.4 (4.3-11.1) K/mcL RBC 3.67 L (4.19-5.50) M/mcL Hgb 10.5 L (12.9-16.9) g/dL Hct 33.7 L (37.5-50.1) % MCV 91.8 (83.0-100.0) fL MCH 28.6 (28.0-33.3) pg MCHC 31.2 L (31.6-35.5) g/dL RDW 14.9 H (11.5-14.5) % Plt Count 216 (140-400) K/mcL MPV 10.1 (9.4-12.4) fL Immature Gran % 0.4 (0-4) % Seg Neutrophils % 91.0 % Lymphocytes % 2.8 % Monocytes % 5.5 % Eosinophils % 0.1 % Basophils % 0.2 % Neutrophils # 8.5 (1.6-8.9) K/mcL Lymphocytes # 0.3 L (0.6-4.6) K/mcL Monocytes # 0.5 (0.0-1.3) K/mcL Eosinophils # 0.0 (0.0-0.6) K/mcL Basophils # 0.0 (0.0-0.2) K/mcL Immature Plt Fraction 1.8 (1.1-6.1) % PT 13.0 H (9.4-12.1) Seconds INR 1.2 APTT 32.2 (26.0-36.0) Seconds ABG pH (7.32-7.45) pH Units ABG pCO2 (35-45) mmHg ABG pO2 (85-104) mmHg ABG HCO3 (21-27) mEQ/L ABG Total CO2 (20-26) mEq/L ABG O2 Saturation (95-98) % ABG Base Excess (-2.0 to 3.0) mEq/L Blood Gas Modality Inspired O2 % Sodium (136-145) mEq/L Potassium (3.5-4.5) mEq/L Chloride (98-109) mEq/L Carbon Dioxide (19-29) mEq/L BUN (8-26) mg/dL Creatinine (0.72-1.25) mg/dL Est GFR ( Amer) (> 60) Est GFR (Non-Af Amer) (> 60) BUN/Creatinine Ratio (6-26) Glucose (70-99) mg/dL Calculated Osmolality (280-300) Lactic Acid (0.5-2.2) mmol/L Calcium (8.6-10.8) mg/dL Phosphorus (2.3-4.7) mg/dL Magnesium (1.6-2.6) mg/dL Total Bilirubin (0.2-1.2) mg/dL Direct Bilirubin (0.0-0.5) mg/dL Indirect Bilirubin (0.0-1.2) mg/dL AST (5-34) Units/L ALT (0-55) Units/L Alkaline Phosphatase (38-126) Units/L Troponin I (0-0.03) ng/mL B-Natriuretic Peptide 64 (0-100) pg/mL Serum Total Protein (6.0-8.3) g/dL Albumin (3.5-5.0) g/dL Globulin (2.4-3.5) g/dL Albumin/Globulin Ratio (1.1-2.2) Urine Color (Yellow) Urine Clarity (Clear) Urine pH (5.0-8.0) pH Units Ur Specific [place] (1.010-1.025) Urine Protein (Neg-Trace) mg/dL Urine Glucose (UA) (Normal) mg/dL Urine Ketones (Negative) mg/dL Urine Blood (Negative) Urine Nitrite (Negative) Urine Bilirubin (Negative) Urine Urobilinogen (Normal) mg/dL Ur Leukocyte Esterase (Negative) Urine Microscopic RBC (0-3) per hpf Urine Microscopic WBC (0-3) per hpf Ur Squamous Epith Cells (None-Few) per lpf Urine Bacteria (None-Few) per hpf Hyaline Casts (None-Few) per lpf Ur Culture Indicated? (NO) 10/28/16 10/28/16 10/28/16 Range/Units 22:00 22:00 22:00 WBC (4.3-11.1) K/mcL RBC (4.19-5.50) M/mcL Hgb (12.9-16.9) g/dL Hct (37.5-50.1) % MCV (83.0-100.0) fL MCH (28.0-33.3) pg MCHC (31.6-35.5) g/dL RDW (11.5-14.5) % Plt Count (140-400) K/mcL MPV (9.4-12.4) fL Immature Gran % (0-4) % Seg Neutrophils % % Lymphocytes % % Monocytes % % Eosinophils % % Basophils % % Neutrophils # (1.6-8.9) K/mcL Lymphocytes # (0.6-4.6) K/mcL Monocytes # (0.0-1.3) K/mcL Eosinophils # (0.0-0.6) K/mcL Basophils # (0.0-0.2) K/mcL Immature Plt Fraction (1.1-6.1) % PT (9.4-12.1) Seconds INR APTT (26.0-36.0) Seconds ABG pH (7.32-7.45) pH Units ABG pCO2 (35-45) mmHg ABG pO2 (85-104) mmHg ABG HCO3 (21-27) mEQ/L ABG Total CO2 (20-26) mEq/L ABG O2 Saturation (95-98) % ABG Base Excess (-2.0 to 3.0) mEq/L Blood Gas Modality Inspired O2 % Sodium 144 (136-145) mEq/L Potassium 4.3 (3.5-4.5) mEq/L Chloride 108 (98-109) mEq/L Carbon Dioxide 25 (19-29) mEq/L BUN 65 H (8-26) mg/dL Creatinine 2.90 H (0.72-1.25) mg/dL Est GFR ( Amer) 26 L (> 60) Est GFR (Non-Af Amer) 22 L (> 60) BUN/Creatinine Ratio 22 (6-26) Glucose 212 H (70-99) mg/dL Calculated Osmolality 323 H (280-300) Lactic Acid 1.9 (0.5-2.2) mmol/L Calcium 10.3 (8.6-10.8) mg/dL Phosphorus 3.8 (2.3-4.7) mg/dL Magnesium 1.9 (1.6-2.6) mg/dL Total Bilirubin 0.8 (0.2-1.2) mg/dL Direct Bilirubin 0.4 (0.0-0.5) mg/dL Indirect Bilirubin 0.4 (0.0-1.2) mg/dL AST 12 (5-34) Units/L ALT 13 (0-55) Units/L Alkaline Phosphatase 112 (38-126) Units/L Troponin I 0.03 (0-0.03) ng/mL B-Natriuretic Peptide (0-100) pg/mL Serum Total Protein 7.1 (6.0-8.3) g/dL Albumin 3.1 L (3.5-5.0) g/dL Globulin 4.0 H (2.4-3.5) g/dL Albumin/Globulin Ratio 0.8 L (1.1-2.2) Urine Color (Yellow) Urine Clarity (Clear) Urine pH (5.0-8.0) pH Units Ur Specific [place] (1.010-1.025) Urine Protein (Neg-Trace) mg/dL Urine Glucose (UA) (Normal) mg/dL Urine Ketones (Negative) mg/dL Urine Blood (Negative) Urine Nitrite (Negative) Urine Bilirubin (Negative) Urine Urobilinogen (Normal) mg/dL Ur Leukocyte Esterase (Negative) Urine Microscopic RBC (0-3) per hpf Urine Microscopic WBC (0-3) per hpf Ur Squamous Epith Cells (None-Few) per lpf Urine Bacteria (None-Few) per hpf Hyaline Casts (None-Few) per lpf Ur Culture Indicated? (NO) 10/28/16 10/28/16 Range/Units 22:35 23:25 WBC (4.3-11.1) K/mcL RBC (4.19-5.50) M/mcL Hgb (12.9-16.9) g/dL Hct (37.5-50.1) % MCV (83.0-100.0) fL MCH (28.0-33.3) pg MCHC (31.6-35.5) g/dL RDW (11.5-14.5) % Plt Count (140-400) K/mcL MPV (9.4-12.4) fL Immature Gran % (0-4) % Seg Neutrophils % % Lymphocytes % % Monocytes % % Eosinophils % % Basophils % % Neutrophils # (1.6-8.9) K/mcL Lymphocytes # (0.6-4.6) K/mcL Monocytes # (0.0-1.3) K/mcL Eosinophils # (0.0-0.6) K/mcL Basophils # (0.0-0.2) K/mcL Immature Plt Fraction (1.1-6.1) % PT (9.4-12.1) Seconds INR APTT (26.0-36.0) Seconds ABG pH 7.41 (7.32-7.45) pH Units ABG pCO2 38 (35-45) mmHg ABG pO2 57 L (85-104) mmHg ABG HCO3 24.1 (21-27) mEQ/L ABG Total CO2 25.3 (20-26) mEq/L ABG O2 Saturation 90 L (95-98) % ABG Base Excess -0.4 (-2.0 to 3.0) mEq/L Blood Gas Modality VM Inspired O2 40 % Sodium (136-145) mEq/L Potassium (3.5-4.5) mEq/L Chloride (98-109) mEq/L Carbon Dioxide (19-29) mEq/L BUN (8-26) mg/dL Creatinine (0.72-1.25) mg/dL Est GFR ( Amer) (> 60) Est GFR (Non-Af Amer) (> 60) BUN/Creatinine Ratio (6-26) Glucose (70-99) mg/dL Calculated Osmolality (280-300) Lactic Acid (0.5-2.2) mmol/L Calcium (8.6-10.8) mg/dL Phosphorus (2.3-4.7) mg/dL Magnesium (1.6-2.6) mg/dL Total Bilirubin (0.2-1.2) mg/dL Direct Bilirubin (0.0-0.5) mg/dL Indirect Bilirubin (0.0-1.2) mg/dL AST (5-34) Units/L ALT (0-55) Units/L Alkaline Phosphatase (38-126) Units/L Troponin I (0-0.03) ng/mL B-Natriuretic Peptide (0-100) pg/mL Serum Total Protein (6.0-8.3) g/dL Albumin (3.5-5.0) g/dL Globulin (2.4-3.5) g/dL Albumin/Globulin Ratio (1.1-2.2) Urine Color Yellow (Yellow) Urine Clarity Cloudy A (Clear) Urine pH 7.0 (5.0-8.0) pH Units Ur Specific [place] 1.020 (1.010-1.025) Urine Protein >=300 H (Neg-Trace) mg/dL Urine Glucose (UA) 100 H (Normal) mg/dL Urine Ketones Negative (Negative) mg/dL Urine Blood Trace H (Negative) Urine Nitrite Negative (Negative) Urine Bilirubin Negative (Negative) Urine Urobilinogen Normal (Normal) mg/dL Ur Leukocyte Esterase Moderate H (Negative) Urine Microscopic RBC 3-5 H (0-3) per hpf Urine Microscopic WBC 50-100 H (0-3) per hpf Ur Squamous Epith Cells Few (None-Few) per lpf Urine Bacteria None Seen (None-Few) per hpf Hyaline Casts Few (None-Few) per lpf Ur Culture Indicated? YES A (NO) - Radiology Data Radiology results reviewed: Yes I reviewed the patient's radiology results. Cervical Spine CT 10/28/16 00:00 IMPRESSION: No acute abnormality of the cervical spine. 1.6 cm low-density lesion within the right thyroid gland. Further evaluation with thyroid ultrasound is recommended. RECOMMENDATIONS: Managing Incidental Thyroid Nodule Detected at CT or MRI or US 1. Further evaluation by thyroid Ultrasound recommended for these incidental nodules: Patient Age 35 years or more - Nodule 1.5 cm in size or greater 2. Follow up thyroid ultrasound also recommend in these scenarios -Solitary nodule with high risk imaging features (locally invasive nodule or suspicious lymph nodes) -Any nodule in a heterogeneous enlarged thyroid gland 3. NO further imaging is recommended in the following scenarios -No f/u imaging is recommended for ITNs not meeting the above criteria. -No US or f/u recommended for ITNs without high risk features in pts. with limited life expectancy or significant co-morbidities, unless clinically warranted. Note: These recommendations do not apply to pts. w/ increased risk for thyroid cancer or pts. with symptomatic thyroid disease. Recommendations for f/u of Incidental Thyroid Nodules (ITN) found on CT, MR, NM and Extrathyroidal US are based upon the ACR white paper and Garcia 3-tiered system for managing ITNs: J Am Roxanna Radiol. 2015 Apr;12(2): 143-50 D/ / Kemar Patel MD / Kemar Patel MD Interpreting Provider: Kemar Patel MD Chest X-Ray 10/28/16 21:48 IMPRESSION: Retrocardiac left lower lobe infiltrate concerning for pneumonia. Recommend follow-up PA and lateral chest when patient condition permits. D/ / Quentin Coronel MD / Quentin Coronel MD Interpreting Provider: Quentin Coronel MD Head CT 10/28/16 21:50 IMPRESSION: No acute intracranial abnormality. Diffuse parenchymal volume loss and sequela of moderate chronic microvascular ischemic changes. Old right basal ganglia lacunar infarction. Left lateral scalp soft tissue swelling. D/ / Diane Burris MD / Diane Burris MD Interpreting Provider: Diane Burris MD - EKG Data EKG #1 EKG attestation: Yes I reviewed and interpreted this EKG. EKG results narrative: EKG demonstrates sinus tachycardia with a rate of 114. Left axis deviation. RI interval 186 QRS duration 113 QTC 398 poor R-wave progression. No ST elevations or depressions. No acute ischemic findings. No significant changes from previous EKG dated 08/19/16. Payal - Payal Situation: Demographics, MOA Background: Presenting Complaint, Relevant PMH, Meds, & Allergies Assessment: Vital Signs, Course and respsone to treatment, Exam Concerns, Patient/Family Expectation, Pertinant Lab Results, Outstanding Labs Recommendation: Barrier(s) to disposition, Recommendation based on pending studies, treatments, or consults S.B.Nannette Report Given to: Dr. Jeremy Moe Repor Time: 00:16
[2016-10-28 22:09] LABS: Basophils % 0.2 %; Eosinophils % 0.1 %; Hematocrit 33.7 % (37.5-50.1); Hemoglobin 10.5 g/dL (12.9-16.9); Immature Granulocytes % 0.4 % (0-4); Immature Platelets 1.8 % (1.1-6.1); Lymphocytes # 0.3 K/mcL (0.6-4.6); Lymphocytes % 2.8 %; Mean Corpuscular HGB Conc 31.2 g/dL (31.6-35.5); Mean Corpuscular Hemoglobin 28.6 pg (28.0-33.3); Mean Corpuscular Volume 91.8 fL (83.0-100.0); Mean Platelet Volume 10.1 fL (9.4-12.4); Monocytes # 0.5 K/mcL (0.0-1.3); Monocytes % 5.5 %; Neutrophils # 8.5 K/mcL (1.6-8.9); Platelet Count 216 K/mcL (140-400); Red Blood Count 3.67 M/mcL (4.19-5.50); Red Cell Distribution Width 14.9 % (11.5-14.5)
[2016-10-28 22:15] LABS: INR 1.2
[2016-10-28 22:18] LABS: Activated Partial Thrombo Time 32.2 Seconds (26.0-36.0)
[2016-10-28] MEDS: 0.9 % Sodium Chloride 1,000 ML IVC SCH ×2 (22:20→23:17)
[2016-10-28 22:24] LABS: Albumin 3.1 g/dL (3.5-5.0); Albumin/Globulin Ratio 0.8 (1.1-2.2); Bilirubin,Direct 0.4 mg/dL (0.0-0.5); Bilirubin,Indirect 0.4 mg/dL (0.0-1.2); Bilirubin,Total 0.8 mg/dL (0.2-1.2); Calcium 10.3 mg/dL (8.6-10.8); Magnesium 1.9 mg/dL (1.6-2.6); Phosphorous 3.8 mg/dL (2.3-4.7); Potassium 4.3 mEq/L (3.5-4.5); Total Protein 7.1 g/dL (6.0-8.3)
[2016-10-28] MEDS ORDERED: Acetaminophen 650 MG RECTAL SUPP RC ONE (22:31)
[2016-10-28 22:46] LABS: Bilirubin,Urine Negative (Negative); Blood,Urine Trace (Negative); Clarity,Urine Cloudy (Clear); Color,Urine Yellow (Yellow); Glucose,Urine (UA) 100 mg/dL (Normal); Ketones,Urine Negative (Negative); Leukocyte Esterase,Urine Moderate (Negative); Nitrite,Urine Negative (Negative); Protein,Urine >=300 mg/dL (Neg-Trace); Urobilinogen,Urine Normal (Normal)
[2016-10-28 22:49] LABS: Bacteria,Urine None Seen per hpf (None-Few); Hyaline Casts,Urine Few per lpf (None-Few); Squamous Epithelial Cell,Urine Few per lpf (None-Few); WBC,Urine 50-100 per hpf (0-3)
[2016-10-28] MEDS ORDERED: Piperacillin/Tazobactam 3.375 GM in D5% in Water (Mini-Bag+) 100 ML IVPB ONE (22:57)
[2016-10-28] MEDS ORDERED: Levofloxacin 750 MG/150 ML 750 MG/150 ML BAG IVPB ONE (22:57)
[2016-10-28] MEDS ORDERED: Vancomycin 1,250 MG in D5% in Water 250 ML IVPB ONE (22:57)
--- NOTE | 2016-10-28 22:58 | Emergency Department Note ---
START Narrative - START START: I examined this patient and my medical decision-making was reviewed with the Resident Physician. I agree with the documented findings, disposition and treatment plan as described except to the extent set forth below. Patient presented in respiratory distress secondary to what appears to be a retrocardiac infiltrate. Patient is a full code. CT of the brain was negative. Workup also revealed evidence of urinary tract infection. Patient will be covered with this with cefepime. Patient will need to be admitted to stepdown ICU.
[2016-10-28] MEDS ORDERED: Cefepime HCl 2,000 MG in D5% in Water (Mini-Bag+) 100 ML IVPB ONE (23:00)
[2016-10-28 23:31] LABS: ABG Base Excess -0.4 mEq/L (-2.0 to 3.0); ABG HCO3 24.1 mEQ/L (21-27); ABG Oxygen Saturation 90 % (95-98); ABG PCO2 38 mmHg (35-45); ABG PH 7.41 pH Units (7.32-7.45); ABG PO2 57 mmHg (85-104); ABG TCO2 25.3 mEq/L (20-26)
[2016-10-28 23:32] LABS: Blood Gas FiO2 40 %
[2016-10-29] MEDS ORDERED: Ondansetron 4 MG/2 ML VIAL IVP PRN (00:33)
[2016-10-29] MEDS ORDERED: Haloperidol Lactate 5 MG/ML VIAL IM PRN (00:43)
[2016-10-29] MEDS ORDERED: Dextrose Gel 15 GM PO PRN ×2 (00:45)
[2016-10-29] MEDS ORDERED: Acetaminophen 650 MG RECTAL SUPP RC PRN (00:45)
[2016-10-29] MEDS ORDERED: D5% in Water 1,000 ML IVC PRN (00:45)
[2016-10-29] MEDS ORDERED: *HR* Dextrose 50 % in Water (Syg) 50 ML SYRINGE IVP PRN (00:45)
[2016-10-29] MEDS ORDERED: 0.9 % Sodium Chloride 1,000 ML IVC SCH ×2 (00:45→10:39)
--- NOTE | 2016-10-29 00:50 | Internal Med History&Physical ---
<Zain Huerta - Last Filed: 10/29/16 01:03> Date of Encounter: 10/29/16 Time of Encounter: 00:46 Assessment and Plan (1) Sepsis Current visit: Yes Status: Acute 66 y/o male with baseline dementia presents from [place] [facility] via EMS due to tachycardia, fever, shortness of breath Source criteria: Tachycardia, febrile Acute on chronic kidney disease Source of infection: UTI, pneumonia Plan: Patient given vancomycin, cefepime, Levaquin, Zosyn in the emergency department. Blood cultures, urine cultures obtained. We will start patient on vancomycin, cefepime, Levaquin. These can be descalated according to culture results. Rectal acetaminophen suppository for fever IV fluids nothing by mouth DVT and GI prophylaxis Bedrest Patient high risk of decompensation secondary to sepsis Qualifiers: Sepsis type: sepsis due to unspecified organism Qualified Code(s): A41.9 - Sepsis, unspecified organism (2) Acute respiratory failure with hypoxia Current visit: Yes Status: Acute 2nd to underlying pneumonia in setting of sepsis Patient on supplemental oxygen due to hypoxia. At baseline patient does not need oxygen supplementation Plan: Continue oxygen supplementation and treatment for underlying pneumonia (3) Pneumonia Current visit: Yes Status: Acute Chest x-ray shows, according to radiology, retrocardiac infiltrate. Patient is requiring oxygen via nasal cannula. Patient is not on oxygen at home Plan: Await blood cultures Continue antibiotics as above Patient not cooperative and will not give sputum sample but this will be ordered. Qualifiers: Pneumonia type: due to unspecified organism Laterality: left Lung location: lower lobe of lung Qualified Code(s): J18.1 - Lobar pneumonia, unspecified organism (4) UTI (urinary tract infection) Current visit: Yes Status: Acute UA shows leukocyte esterase, white blood cells, proteinuria, red cell casts, trace hematuria Plan: Patient on Levaquin and cefepime Await urine cultures before de-escalation. Qualifiers: Urinary tract infection type: acute cystitis Hematuria presence: without hematuria Qualified Code(s): N30.00 - Acute cystitis without hematuria (5) Dementia Current visit: Yes Status: Chronic As per EMR patient has baseline dementia. Patient is easily agitated and aggressive. Acute encephalopathy secondary to sepsis With patient being septic, he may be more aggressive. Current patient is awake and alert. Only conversational when he goes "go away" Plan: Treat underlying infection which will improve his mental status. When necessary Ativan and haloperidol continues from long term medication list for agitation Qualifiers: Dementia type: unspecified type Dementia behavioral disturbance: with behavioral disturbance Qualified Code(s): F03.91 - Unspecified dementia with behavioral disturbance (6) PRABHJOT (acute kidney injury) Current visit: Yes Status: Acute Patient's baseline serum creatinine is 2.3 Patient presented some creatinine of 2.9 Most likely secondary to sepsis Plan: IV fluids Repeat BMP in the morning Avoid nephrotoxic agents. As patient is on vancomycin and Zosyn and this combination is nephrotoxic it is important to monitor her urine function. 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 Falcon is a 66 year old male [facility] findings of fever, tachycardia, shortness of breath. Patient has baseline dementia and initially was nonverbal, not following Command on presentation. During my encounter patient would not answer my questions or cooperate with my exam. History is obtained from EMR. EMS also reported patient to be hypoxic and was placed on nasal cannula. Year resident called nursing facility stay the patient had a fall. Furthermore her seriously status the patient is full code. Past Med Surg Social Fam HX - Past Medical History Medical history: coronary artery disease, CVA, dementia, diabetes, GERD, hypertension, renal disease Psychiatric history: PTSD - Past Surgical History Surgical History: non-contributory - Social History Smoking Status: Unknown if ever smoked Smokeless Tobacco Status: (uk) Alcohol use: unknown Drug use: unknown Internal Medicine - H&P: Meds Aspirin [Lo-Dose Aspirin EC] 81 mg PO DAILY 08/20/16 [History] Atorvastatin [Lipitor] 40 mg PO HS 08/20/16 [History] Bisacodyl [Dulcolax] 10 mg RC DAILY PRN 08/20/16 [History] Divalproex (12 HR) [Depakote (12 HR)] 250 mg PO BID 08/20/16 [History] Finasteride [Proscar] 5 mg PO DAILY 08/20/16 [History] Haloperidol Lactate [Haldol] 5 mg IM Q6H PRN 08/20/16 [History] Haloperidol [Haldol] 5 mg PO Q6H PRN 08/20/16 [History] Magnesium Hydroxide [Milk of Magnesia] 30 ml PO BID PRN 08/20/16 [History] OxyCODONE Immed Rel [Roxicodone 5 MG] 5 mg PO Q4H PRN 08/20/16 [History] Oxycodone HCl [Oxaydo] 5 mg PO TID PRN 08/20/16 [History] Polyethylene Glycol 3350 [MiraLAX bowel prep] 17 gm PO DAILY 08/20/16 [History] Ranitidine HCl [Acid Frame Runner] 150 mg PO QPM 08/20/16 [History] Sennosides/Docusate Sodium [Senna-Docusate Sodium Tablet] 2 tab PO BID PRN 08/20 [History] Tamsulosin HCl [Flomax] 0.4 mg PO BID 08/20/16 [History] risperiDONE [Risperidone] 0.5 mg PO HS 08/20/16 [History] Albuterol Neb Q4H 10/29/16 [History] Tylenol RC 10/29/16 [History] Allergies baclofen Allergy (Verified 10/29/16 00:54) See Comments lisinopril Allergy (Verified 08/19/16 20:55) See Comments unknown reactions, pt unable to answer. [facility]. ROS unobtainable: due to mental status All Systems PM: A 10-system review of systems was performed and is negative for pertinent findings except as documented above in the HPI. - Constitutional Vitals: Temp Pulse Resp BP Pulse Ox 99.3 F 95 20 135/85 100 10/29/16 00:26 10/29/16 00:26 10/29/16 00:26 10/29/16 00:26 10/29/16 00:26 - Other Additional findings: General: Patient alert, sitting in bed, non-cooperative, aggressive (tendency to punch does upset him) HEENT: Head atraumatic, normocephalic, PERRLA, neck nontender, absent lymphadenopathy Heart: Sinus tachycardia with no murmur Lungs: Clear to auscultation anteriorly Abdomen: Soft nontender, nondistended positive bowel sounds Extremities: Absent pedal edema, Skin: Warm and dry Neuro: Unable to do neuro exam due to patient being uncooperative. Vascular: Pedal and radial pulses 2 out of 4 Internal Med - H&P Results - Labs CBC & Chem 7: 10/28/16 22:00 10/28/16 22:00 Labs: Short CBC 10/28/16 Range/Units 22:00 WBC 9.4 (4.3-11.1) K/mcL Hgb 10.5 L (12.9-16.9) g/dL Hct 33.7 L (37.5-50.1) % Plt Count 216 (140-400) K/mcL Neutrophils # 8.5 (1.6-8.9) K/mcL BMP 10/28/16 22:00 Sodium 144 Potassium 4.3 Chloride 108 Carbon Dioxide 25 BUN 65 H Creatinine 2.90 H Glucose 212 H Calcium 10.3 Cardiac Enzymes 10/28/16 Range/Units 22:00 Troponin I 0.03 (0-0.03) ng/mL Liver Function 10/28/16 Range/Units 22:00 Total Bilirubin 0.8 (0.2-1.2) mg/dL Direct Bilirubin 0.4 (0.0-0.5) mg/dL AST 12 (5-34) Units/L ALT 13 (0-55) Units/L Alkaline Phosphatase 112 (38-126) Units/L Albumin 3.1 L (3.5-5.0) g/dL Urine 10/28/16 Range/Units 22:35 Urine Color Yellow (Yellow) Urine Clarity Cloudy A (Clear) Urine pH 7.0 (5.0-8.0) pH Units Ur Specific [place] 1.020 (1.010-1.025) Urine Protein >=300 H (Neg-Trace) mg/dL Urine Glucose (UA) 100 H (Normal) mg/dL - ABG Interpretation ABG results: 10/28/16 23:25 ABG pH 7.41 ABG pCO2 38 ABG pO2 57 L ABG HCO3 24.1 ABG Total CO2 25.3 ABG O2 Saturation 90 L ABG Base Excess -0.4 - Impressions ITS Impressions Cervical Spine CT 10/28/16 00:00 IMPRESSION: No acute abnormality of the cervical spine. 1.6 cm low-density lesion within the right thyroid gland. Further evaluation with thyroid ultrasound is recommended. RECOMMENDATIONS: Managing Incidental Thyroid Nodule Detected at CT or MRI or US 1. Further evaluation by thyroid Ultrasound recommended for these incidental nodules: Patient Age 35 years or more - Nodule 1.5 cm in size or greater 2. Follow up thyroid ultrasound also recommend in these scenarios -Solitary nodule with high risk imaging features (locally invasive nodule or suspicious lymph nodes) -Any nodule in a heterogeneous enlarged thyroid gland 3. NO further imaging is recommended in the following scenarios -No f/u imaging is recommended for ITNs not meeting the above criteria. -No US or f/u recommended for ITNs without high risk features in pts. with limited life expectancy or significant co-morbidities, unless clinically warranted. Note: These recommendations do not apply to pts. w/ increased risk for thyroid cancer or pts. with symptomatic thyroid disease. Recommendations for f/u of Incidental Thyroid Nodules (ITN) found on CT, MR, NM and Extrathyroidal US are based upon the ACR white paper and Garcia 3-tiered system for managing ITNs: J Am Roxanna Radiol. 2015 Apr;12(2): 143-50 D/ / Kemar Patel MD / Kemar Patel MD Interpreting Provider: Kemar Patel MD Chest X-Ray 10/28/16 21:48 IMPRESSION: Retrocardiac left lower lobe infiltrate concerning for pneumonia. Recommend follow-up PA and lateral chest when patient condition permits. D/ / Quentin Coronel MD / Quentin Coronel MD Interpreting Provider: Quentin Coronel MD Head CT 10/28/16 21:50 IMPRESSION: No acute intracranial abnormality. Diffuse parenchymal volume loss and sequela of moderate chronic microvascular ischemic changes. Old right basal ganglia lacunar infarction. Left lateral scalp soft tissue swelling. D/ / Diane Burris MD / Diane Burris MD Interpreting Provider: Diane Burris MD <JeremyBlayne - Last Filed: 10/29/16 01:33> Date of Encounter: 10/29/16 Internal Medicine - H&P: HPI History of present illness: Mr. Falcon is a 66 year old male All Systems PM: A 10-system review of systems was performed and is negative for pertinent findings except as documented above in the HPI. - Constitutional Vitals: Temp Pulse Resp BP Pulse Ox 99.3 F 95 18 112/73 100 10/29/16 00:26 10/29/16 00:26 10/29/16 01:24 10/29/16 01:24 10/29/16 00:26 Internal Med - H&P Results - Labs CBC & Chem 7: 10/28/16 22:00 10/28/16 22:00 - Attending Attestation I examined this patient and my medical decision-making was reviewed with the Resident Physician, Dr Zain Huerta. I agree with the documented findings, disposition and treatment plan as described except to the extent set forth below. My findings are summarized below: Patient is asleep, arousable to sternal rub appears in no acute distress, breathing 17-20 breaths per minute, heart rate in the 90s, oxygen saturation 100 % blood pressure within normal range. Lungs are clear to auscultation, heart is regular. Plan: We will admit, treat for healthcare associated pneumonia. For metabolic encephalopathy likely secondary to opiate toxicity given that the patient takes oxycodone at the long term as well as complicated by sepsis and chronic treatment with psychiatric medication I will order a trial dose of Narcan. The patient is at high risk for morbidity mortality and complications due to significant change in mental status.
[2016-10-29] MEDS ORDERED: Naloxone 0.4 MG/ML INJ IVP ONE (01:43)
[2016-10-29] MEDS: *HR* Heparin 5,000 UNIT/ML VIAL SQ SCH ×2 (05:48→17:49)
[2016-10-29] MEDS: Famotidine 20 MG/2 ML VIAL IVP SCH ×2 (05:48→17:49)
[2016-10-29] MEDS: Insulin LISPRO 300 UNITS/3 ML VIAL SQ SCH ×3 (05:55→17:46)
[2016-10-29 08:53] LABS: Basophils % 0.2 %; Eosinophils # 0.1 K/mcL (0.0-0.6); Eosinophils % 1.2 %; Hematocrit 29.5 % (37.5-50.1); Immature Granulocytes % 0.2 % (0-4); Lymphocytes # 0.6 K/mcL (0.6-4.6); Lymphocytes % 7.4 %; Mean Corpuscular HGB Conc 29.8 g/dL (31.6-35.5); Mean Corpuscular Hemoglobin 28.8 pg (28.0-33.3); Mean Corpuscular Volume 96.4 fL (83.0-100.0); Mean Platelet Volume 11.1 fL (9.4-12.4); Monocytes # 0.7 K/mcL (0.0-1.3); Monocytes % 7.7 %; Platelet Count 166 K/mcL (140-400); Red Blood Count 3.06 M/mcL (4.19-5.50); Red Cell Distribution Width 15.3 % (11.5-14.5); Segmented Neutrophils % 83.3 %
[2016-10-29 08:54] LABS: Hemoglobin 8.8 g/dL (12.9-16.9)
[2016-10-29 09:08] LABS: Potassium 4.2 mEq/L (3.5-4.5)
[2016-10-29 09:09] LABS: Calcium 9.3 mg/dL (8.6-10.8)
--- NOTE | 2016-10-29 11:03 | Internal Med Progress Note ---
Date of Encounter: 10/29/16 Time of Encounter: 10:54 - Assessment and plan (1) Sepsis Current Visit: Yes Status: Acute Assessment and plan: pt does meet sepsis criteria cont gentle IV hdyration broad spec abx - renally dosed abx Cefepime + Vanco + Levofloxacin Qualifiers: Sepsis type: sepsis due to unspecified organism Qualified Code(s): A41.9 - Sepsis, unspecified organism (2) Acute respiratory failure with hypoxia Current Visit: Yes Status: Acute Assessment and plan: due to LLL PNA Cont duoneb and O2 no need of steroids (3) Pneumonia Current Visit: Yes Status: Acute Assessment and plan: Mostly aspirational PNA with super imposed bacterial inf cont broad spec abx aspiration precautions Duoneb and O2 waiting on speech eval for now will give him pureed honey thick diet of he passes bed side swallow if he fails - will keep him strict NPO tried to reach out POA to discuss about his further care Qualifiers: Pneumonia type: due to unspecified organism Laterality: left Lung location: lower lobe of lung Qualified Code(s): J18.1 - Lobar pneumonia, unspecified organism (4) Acute delirium Current Visit: Yes Status: Acute Assessment and plan: due to Pneumonia + Dementia will give Haldol 0.5 mg IV q6hr PRN - only when he gets agitated (5) Acute kidney injury superimposed on CKD Current Visit: Yes Status: Acute (6) Dementia Current Visit: Yes Status: Chronic Qualifiers: Dementia type: unspecified type Dementia behavioral disturbance: with behavioral disturbance Qualified Code(s): F03.91 - Unspecified dementia with behavioral disturbance (7) History of CVA (cerebrovascular accident) Current Visit: No Status: Inactive Assessment and plan: resumed home meds - Subjective Interval history: This is a 66 y/o M with known PMH of Dementia, wheel chair bound, [facility] [place] [facility] resident, also has HTN, HLD< Chronic low back pain and chronic narcotic dependent who was Oxycodone, also has high risk for aspiration currently on pureed honey thick diet, who also had recent hospitalization at [facility] for pneumonia, now he was sent to our ER with fever, chills and hypoxia. Apparently pt was unresponsive in the ER with hypoxic respiratory failure mostly due to pneumonia and pain medication induced. he was given Narcan and he woke up, since then pt was combative and agitated. Now he is resting comfortabbly except moaning here and there with help me. I did [facility] and got the above information. Tried to reach out pt's LILIBETH Lutz @ ..Left a voice message. - Constitutional Vitals: Temp Pulse Resp BP Pulse Ox 97.6 F 107 22 149/96 100 10/29/16 02:40 10/29/16 02:40 10/29/16 02:40 10/29/16 02:40 10/29/16 05:52 General appearance: Present: A&O X 1, mild distress - Head Head exam: Present: atraumatic, normal inspection - Respiratory Respiratory exam: Present: decreased breath sounds, respiratory distress (mild) , rhonchi. Absent: rales, wheezes - Cardiovascular Cardiovascular exam: Present: RRR, +S1, +S2. Absent: systolic murmur - GI/Abdominal GI/Abdominal exam: Present: soft. Absent: distended, rebound, rigid, tenderness - Extremities Exam Extremities exam: Absent: calf tenderness, pedal edema, tenderness - Neurological Exam Neurological exam: Present: altered Additional comments: unable to do thorough neuro assessment - Psychiatric Psychiatric exam: Present: anxious Internal Medicine: Result - Labs CBC & Chem 7: 10/29/16 08:21 10/29/16 08:21 Labs: Short CBC 10/29/16 Range/Units 08:21 WBC 8.4 (4.3-11.1) K/mcL Hgb 8.8 L D (12.9-16.9) g/dL Hct 29.5 L (37.5-50.1) % Plt Count 166 (140-400) K/mcL Neutrophils # 7.0 (1.6-8.9) K/mcL BMP 10/29/16 08:21 Sodium 145 Potassium 4.2 Chloride 114 H Carbon Dioxide 23 BUN 58 H Creatinine 2.48 H Glucose 93 Calcium 9.3 - ABG Interpretation ABG results: ABG ABG pH 7.41 pH Units (7.32-7.45) 10/28/16 23:25 ABG pCO2 38 mmHg (35-45) 10/28/16 23:25 ABG pO2 57 mmHg (85-104) L 10/28/16 23:25 ABG O2 Saturation 90 % (95-98) L 10/28/16 23:25 PT/INR, D-dimer PT 13.0 Seconds (9.4-12.1) H 10/28/16 22:00 Consult Discharge Plan - Plan [facility]errals: [facility] [Primary Care Provider] -
[2016-10-29] MEDS ORDERED: Cefepime HCl 2,000 MG in D5% in Water (Mini-Bag+) 100 ML IVPB SCH (12:00)
[2016-10-29] MEDS: Haloperidol Lactate 5 MG/ML VIAL IVP PRN ×2 (12:10→20:07)
[2016-10-29] MEDS: *HR* LORazepam 2 MG/ML VIAL IM PRN ×2 (13:00→21:48)
[2016-10-29] MEDS: Cefepime HCl 1,000 MG in D5% in Water (Mini-Bag+) 100 ML IVPB SCH (17:49)
--- NOTE | 2016-10-29 17:51 | Electrocardiograph Report ---
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
[2016-10-29] MEDS ORDERED: Vancomycin 1,250 MG in D5% in Water 250 ML IVPB SCH (23:00)
[2016-10-29 23:39] LABS: Acinetobacter baumannii by PCR Not Detected (Not Detect); Candida albicans by PCR Not Detected (Not Detect); Candida glabrata by PCR Not Detected (Not Detect); Candida krusei by PCR Not Detected (Not Detect); Candida parapsilosis by PCR Not Detected (Not Detect); Candida tropicalis by PCR Not Detected (Not Detect); Enterococcus by PCR Not Detected (Not Detect); Escherichia coli by PCR Not Detected (Not Detect); Klebsiella oxytoca by PCR Not Detected (Not Detect); Klebsiella pneumoniae by PCR Not Detected (Not Detect); Pseudomonas aeruginosa by PCR Not Detected (Not Detect); Serratia marcescens by PCR Not Detected (Not Detect); Staphylococcus aureus by PCR Not Detected (Not Detect); Streptococcus agalactiae(B)PCR Not Detected (Not Detect); Streptococcus by PCR Not Detected (Not Detect); Streptococcus pneumoniae PCR Not Detected (Not Detect); Streptococcus pyogenes (A) PCR Not Detected (Not Detect); mecA Methicillin-Resist Gene ***DETECTED*** (Not Detect)
--- NOTE | 2016-10-30 00:10 | Event Note ---
Date of Encounter: 10/30/16 Time of Encounter: 00:13 RN called that blood cx came back for MRSA. Attempted to call micro to verify how many bottles/and sets were positive as i suspect this could be due to contamination given his nasal swab was MRSA positive - however, no one answered. Repeat 2 sets blood cx, continue therapy (on vanco, level and pharmD to dose pending) and await for further microbiology information. Would empirically treat MRSA should both set return positive. If one set positive, and the other negative - this would suggest contamination.
[2016-10-30] MEDS: Insulin LISPRO 300 UNITS/3 ML VIAL SQ SCH ×4 (00:30→18:18)
[2016-10-30] MEDS ORDERED: Levofloxacin 750 MG/150 ML 750 MG/150 ML BAG IVPB SCH (01:00)
[2016-10-30 03:26] LABS: Calcium 9.3 mg/dL (8.6-10.8); Magnesium 1.8 mg/dL (1.6-2.6); Potassium 4.1 mEq/L (3.5-4.5)
[2016-10-30] MEDS ORDERED: Vancomycin 1,250 MG in D5% in Water 250 ML IVPB ONE (04:00)
[2016-10-30 06:13] LABS: Basophils % 0.6 %; Eosinophils # 0.2 K/mcL (0.0-0.6); Eosinophils % 4.2 %; Hematocrit 26.6 % (37.5-50.1); Immature Granulocytes % 0.2 % (0-4); Lymphocytes # 0.8 K/mcL (0.6-4.6); Lymphocytes % 13.8 %; Mean Corpuscular HGB Conc 30.1 g/dL (31.6-35.5); Mean Corpuscular Hemoglobin 28.9 pg (28.0-33.3); Mean Platelet Volume 11.2 fL (9.4-12.4); Monocytes # 0.3 K/mcL (0.0-1.3); Monocytes % 5.5 %; Neutrophils # 4.1 K/mcL (1.6-8.9); Platelet Count 180 K/mcL (140-400); Red Blood Count 2.77 M/mcL (4.19-5.50); Red Cell Distribution Width 15.1 % (11.5-14.5); Segmented Neutrophils % 75.7 %
[2016-10-30] MEDS: *HR* Heparin 5,000 UNIT/ML VIAL SQ SCH ×2 (06:26→18:08)
[2016-10-30] MEDS: Cefepime HCl 1,000 MG in D5% in Water (Mini-Bag+) 100 ML IVPB SCH ×2 (06:27→18:06)
[2016-10-30] MEDS: Famotidine 20 MG/2 ML VIAL IVP SCH (06:27)
[2016-10-30] MEDS: *HR* LORazepam 2 MG/ML VIAL IM PRN (10:31)
--- NOTE | 2016-10-30 11:50 | Internal Med Progress Note ---
Date of Encounter: 10/30/16 Time of Encounter: 11:48 - Assessment and plan (1) Sepsis Current Visit: Yes Status: Acute Assessment and plan: His blood cx 1/2 positive for Gram Positive Cocci - mostly contaminated however repeated blood cx this morning - will f/u on them cont MRSA isolation Cont broad spec abx - renally dosed abx Cefepime + Vanco + Levofloxacin Qualifiers: Sepsis type: sepsis due to unspecified organism Qualified Code(s): A41.9 - Sepsis, unspecified organism (2) Acute respiratory failure with hypoxia Current Visit: Yes Status: Acute Assessment and plan: due to LLL PNA Cont duoneb and O2 no need of steroids (3) Pneumonia Current Visit: Yes Status: Acute Assessment and plan: Mostly aspirational PNA with super imposed bacterial inf cont broad spec abx aspiration precautions Duoneb and O2 Speech recommend Nector thick liquids tried to reach out POA to discuss about his further care - left a message with office staff Qualifiers: Pneumonia type: due to unspecified organism Laterality: left Lung location: lower lobe of lung Qualified Code(s): J18.1 - Lobar pneumonia, unspecified organism (4) Acute delirium Current Visit: Yes Status: Acute Assessment and plan: due to Pneumonia, UTI + Dementia Cont Haldol 0.5 mg IV q6hr PRN - only when he gets agitated (5) Acute kidney injury superimposed on CKD Current Visit: Yes Status: Acute Assessment and plan: Improved and stable at his baseline @ 2.34 (6) Dementia Current Visit: Yes Status: Chronic Assessment and plan: high risk for sundown syndrome cont Haldol IV PRN at 0.5mg also started him on seroquel 25mg QHS Qualifiers: Dementia type: unspecified type Dementia behavioral disturbance: with behavioral disturbance Qualified Code(s): F03.91 - Unspecified dementia with behavioral disturbance (7) History of CVA (cerebrovascular accident) Current Visit: No Status: Inactive Assessment and plan: resumed home meds - Subjective Interval history: This is a 66 y/o M with known PMH 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 Apparently pt was unresponsive in the ER with hypoxic respiratory failure mostly due to pneumonia and pain medication induced. he was given Narcan and he woke up, since then pt was combative and agitated. Now he is resting comfortabbly except moaning here and there with help me. I did talk to pt's [place] nursing staff and got the above information. Tried to reach out pt's LILIBETH Lutz @ [phone]..Left a voice message. Pt was little agitated this morning and received Ativan. Now he is more alert, awake and oriented to self. Resting comfortably. Wants to have a soda. Denied any CP /SOB - Constitutional Vitals: Temp Pulse Resp BP Pulse Ox 97.6 F 71 16 157/84 92 10/30/16 07:28 10/30/16 09:55 10/30/16 09:55 10/30/16 09:55 10/30/16 09:55 General appearance: Present: A&O X 1, pleasant, no acute distress - Head Head exam: Present: atraumatic, normal inspection - Neck Neck exam general surgery: Present: supple. Absent: lymphadenopathy, thyromegaly - Respiratory Respiratory exam: Present: decreased breath sounds, rhonchi. Absent: rales, respiratory distress, wheezes - Cardiovascular Cardiovascular exam: Present: RRR, +S1, +S2. Absent: systolic murmur - GI/Abdominal GI/Abdominal exam: Present: normal bowel sounds, soft. Absent: rebound, rigid, tenderness - Extremities Exam Extremities exam: Absent: calf tenderness, pedal edema, tenderness - Neurological Exam Neurological exam: Present: alert (demented) - Psychiatric Additional comments: pleasantly demented Internal Medicine: Result - Labs CBC & Chem 7: 10/30/16 01:12 10/30/16 01:12 Labs: Short CBC 10/30/16 Range/Units 01:12 WBC 5.4 (4.3-11.1) K/mcL Hgb 8.0 L (12.9-16.9) g/dL Hct 26.6 L (37.5-50.1) % Plt Count 180 (140-400) K/mcL Neutrophils # 4.1 (1.6-8.9) K/mcL BMP 10/30/16 01:12 Sodium 144 Potassium 4.1 Chloride 115 H Carbon Dioxide 22 BUN 53 H Creatinine 2.34 H Glucose 116 H Calcium 9.3 - ABG Interpretation ABG results: ABG ABG pH 7.41 pH Units (7.32-7.45) 10/28/16 23:25 ABG pCO2 38 mmHg (35-45) 10/28/16 23:25 ABG pO2 57 mmHg (85-104) L 10/28/16 23:25 ABG O2 Saturation 90 % (95-98) L 10/28/16 23:25 PT/INR, D-dimer PT 13.0 Seconds (9.4-12.1) H 10/28/16 22:00 Consult Discharge Plan - Plan [facility]errals: [facility] [Primary Care Provider] -
[2016-10-30] MEDS: Haloperidol Lactate 5 MG/ML VIAL IVP PRN ×2 (14:00→18:08)
[2016-10-30] MEDS: *HR* OxyCODONE/APAP 5/325 TABLET PO PRN (14:58)
[2016-10-30] MEDS ORDERED: Famotidine 20 MG/2 ML VIAL IVP SCH (18:00)
--- NOTE | 2016-10-30 18:05 | Event Note ---
Date of Encounter: 10/30/16 Time of Encounter: 18:04 Spoke to his POA Mr. Lutz and updated him about current care. He does requested for DNR / DNI only. So will change the code status.
[2016-10-30] MEDS ORDERED: Famotidine 20 MG TABLET PO SCH (21:00)
[2016-10-30] MEDS: Famotidine 20 MG TABLET PO SCH (21:24)
[2016-10-31] MEDS: Insulin LISPRO 300 UNITS/3 ML VIAL SQ SCH ×4 (00:22→18:17)
--- NOTE | 2016-10-31 03:28 | Event Note ---
Date of Encounter: 10/31/16 Time of Encounter: 02:00 Reported by RN pt has sinus bradycardia to 40s. BP is stable. Saw pt bedside, demented but can be waken up. Pt is not on any BB or CCB. He was newly started seroquel today, posibly the sedative effect causing bradycardia?. Will hold seroquel now. Check Mg and TSH in AM. Continue close monitoring.
[2016-10-31] MEDS: *HR* Heparin 5,000 UNIT/ML VIAL SQ SCH ×2 (06:10→18:18)
[2016-10-31] MEDS: Cefepime HCl 1,000 MG in D5% in Water (Mini-Bag+) 100 ML IVPB SCH ×2 (06:11→18:17)
[2016-10-31 06:28] LABS: Basophils % 0.9 %; Eosinophils # 0.2 K/mcL (0.0-0.6); Eosinophils % 4.3 %; Hematocrit 26.4 % (37.5-50.1); Hemoglobin 8.4 g/dL (12.9-16.9); Immature Granulocytes % 0.2 % (0-4); Lymphocytes % 22.4 %; Mean Corpuscular HGB Conc 31.8 g/dL (31.6-35.5); Mean Corpuscular Hemoglobin 29.4 pg (28.0-33.3); Mean Corpuscular Volume 92.3 fL (83.0-100.0); Mean Platelet Volume 10.7 fL (9.4-12.4); Monocytes # 0.3 K/mcL (0.0-1.3); Monocytes % 6.9 %; Neutrophils # 2.9 K/mcL (1.6-8.9); Platelet Count 180 K/mcL (140-400); Red Blood Count 2.86 M/mcL (4.19-5.50); Red Cell Distribution Width 14.7 % (11.5-14.5); Segmented Neutrophils % 65.3 %
[2016-10-31 06:43] LABS: Calcium 9.6 mg/dL (8.6-10.8); Magnesium 1.5 mg/dL (1.6-2.6); Potassium 3.9 mEq/L (3.5-4.5)
[2016-10-31 07:05] LABS: Thyroid Stimulating Hormone 2.167 mcIU/mL (0.350-4.840)
[2016-10-31] MEDS ORDERED: Aminoglycoside Consult 1 EACH MC ONE (08:30)
[2016-10-31] MEDS: Haloperidol Lactate 5 MG/ML VIAL IVP PRN ×2 (12:20→21:40)
[2016-10-31] MEDS: *HR* OxyCODONE/APAP 5/325 TABLET PO PRN ×2 (15:27→22:51)
[2016-10-31] MEDS ORDERED: Magnesium Sulfate 2 GM in D5% in Water 100 ML IVPB ONE (17:50)
--- NOTE | 2016-10-31 18:05 | Internal Med Progress Note ---
Date of Encounter: 10/31/16 Time of Encounter: 17:57 - Assessment and plan (1) UTI (urinary tract infection) Current Visit: Yes Status: Acute Qualifiers: Urinary tract infection type: acute cystitis Hematuria presence: without hematuria Qualified Code(s): N30.00 - Acute cystitis without hematuria (2) Healthcare-associated pneumonia Current Visit: Yes Status: Acute (3) Sinus bradycardia Current Visit: Yes Status: Acute (4) Altered mental status Current Visit: Yes Status: Acute Qualifiers: Altered mental status type: delirium Qualified Code(s): R41.0 - Disorientation, unspecified (5) Dementia Current Visit: Yes Status: Chronic Qualifiers: Dementia type: unspecified type Dementia behavioral disturbance: with behavioral disturbance Qualified Code(s): F03.91 - Unspecified dementia with behavioral disturbance (6) Chronic kidney disease Current Visit: Yes Status: Chronic Qualifiers: Chronic kidney disease stage: stage 4 (severe) Qualified Code(s): N18.4 - Chronic kidney disease, stage 4 (severe) (7) Acute delirium Current Visit: Yes Status: Acute (8) Anemia Current Visit: Yes Status: Acute Qualifiers: Anemia type: unspecified type Qualified Code(s): D64.9 - Anemia, unspecified (9) DVT prophylaxis Current Visit: Yes Status: Acute - Subjective Interval history: This is a 66 y/o M with known PMH of Dementia, wheel chair bound, senior care [place] [facility] resident, also has HTN, HLD< Chronic low back pain and chronic narcotic dependent who was Oxycodone, also has high risk for aspiration currently on pureed honey thick diet, who also had recent hospitalization at [facility] for pneumonia, now he was sent to our ER with fever, chills and hypoxia. Apparently pt was unresponsive in the ER with hypoxic respiratory failure mostly due to pneumonia and pain medication induced. he was given Narcan and he woke up, since then pt was combative and agitated Problem list: #1 left lower lobe pneumonia. Blood culture 1 out of 2 bottles positive for staph. Previous hospitalist felt it was contamination therefore repeat blood culture were done which are negative so far. He is on vancomycin cefepime and Levaquin. I will DC Levaquin and vancomycin and just keep him on cefepime and follow CBC. #2 UTI culture positive for Proteus sensitive to cephalosporin resistant to Levaquin #3 COPD continue nebulizer treatment #4 acute on chronic kidney disease his creatinine is around 2.4 and that seems to be his baseline #5 sinus bradycardia happened yesterday night hospitalist. Seroquel. It is not clear blood pressure fluctuated. I will restart Seroquel though we know that Haldol and Seroquel both can cause this issue and watch him as his magnesium was low and I supplemented it #6 hypomagnesemia magnesium supplemented and recheck #7 dementia patient POA has requested DNR/DNI status. Disposition: We will see if his bradycardia recurs his labs remain stable. If he stabilized he can be discharged back to care home. - Constitutional Vitals: Temp Pulse Resp BP Pulse Ox 97.9 F 75 16 204/101 100 10/31/16 17:17 10/31/16 17:17 10/31/16 17:17 10/31/16 17:17 10/31/16 17:17 General appearance: Present: A&O X 1, pleasant, no acute distress - Head Head exam: Present: atraumatic, normocephalic - Eye Eye exam: Present: PERRL, conjuntiva pink, sclera anicteric Pupils: Present: PERRL - Neck Neck exam general surgery: Present: supple, trachea midline. Absent: lymphadenopathy - Respiratory Respiratory exam: Present: decreased breath sounds. Absent: accessory muscle use, rales, rhonchi, wheezes - Cardiovascular Cardiovascular exam: Present: RRR, +S1, +S2. Absent: diastolic murmur, gallop, rubs, systolic murmur - GI/Abdominal GI/Abdominal exam: Present: normal bowel sounds, soft, no peritoneal signs. Absent: distended, tenderness - Extremities Exam Extremities exam: Present: warm, radial pulses palpable and symmetrical. Absent : calf tenderness, cyanotic, pedal edema - Neurological Exam Neurological exam: Absent: pronater drift, facial droop, speech deficit Additional comments: Awake pleasantly confused nonfocal exam - Skin Skin exam: Present: dry, intact Internal Medicine: Result - Labs CBC & Chem 7: 10/31/16 06:07 10/31/16 06:07 Labs: Short CBC 10/31/16 Range/Units 06:07 WBC 4.5 (4.3-11.1) K/mcL Hgb 8.4 L (12.9-16.9) g/dL Hct 26.4 L (37.5-50.1) % Plt Count 180 (140-400) K/mcL Neutrophils # 2.9 (1.6-8.9) K/mcL BMP 10/31/16 06:07 Sodium 142 Potassium 3.9 Chloride 112 H Carbon Dioxide 23 BUN 45 H Creatinine 2.40 H Glucose 98 Calcium 9.6 - ABG Interpretation ABG results: ABG ABG pH 7.41 pH Units (7.32-7.45) 10/28/16 23:25 ABG pCO2 38 mmHg (35-45) 10/28/16 23:25 ABG pO2 57 mmHg (85-104) L 10/28/16 23:25 ABG O2 Saturation 90 % (95-98) L 10/28/16 23:25 PT/INR, D-dimer PT 13.0 Seconds (9.4-12.1) H 10/28/16 22:00 Consult Discharge Plan - Plan [facility]: [facility] [Primary Care Provider] -
[2016-10-31] MEDS: amLODIPine 5 MG TABLET PO SCH (18:18)
[2016-10-31] MEDS: Famotidine 20 MG TABLET PO SCH (20:22)
[2016-11-01] MEDS: Insulin LISPRO 300 UNITS/3 ML VIAL SQ SCH ×3 (00:23→12:26)
[2016-11-01] MEDS: *HR* Heparin 5,000 UNIT/ML VIAL SQ SCH ×2 (05:43→18:13)
[2016-11-01] MEDS: Cefepime HCl 1,000 MG in D5% in Water (Mini-Bag+) 100 ML IVPB SCH ×2 (05:44→18:12)
[2016-11-01] MEDS: Haloperidol Lactate 5 MG/ML VIAL IVP PRN ×3 (07:48→18:13)
[2016-11-01 08:40] LABS: Albumin 2.6 g/dL (3.5-5.0); Albumin/Globulin Ratio 0.7 (1.1-2.2); Bilirubin,Total 0.5 mg/dL (0.2-1.2); Calcium 9.7 mg/dL (8.6-10.8); Globulin 3.5 g/dL (2.4-3.5); Magnesium 1.9 mg/dL (1.6-2.6); Total Protein 6.1 g/dL (6.0-8.3)
[2016-11-01 08:45] LABS: Basophils % 0.6 %; Eosinophils # 0.2 K/mcL (0.0-0.6); Eosinophils % 4.8 %; Immature Granulocytes % 0.6 % (0-4); Lymphocytes # 0.8 K/mcL (0.6-4.6); Lymphocytes % 24.1 %; Mean Corpuscular Hemoglobin 28.4 pg (28.0-33.3); Mean Corpuscular Volume 91.5 fL (83.0-100.0); Mean Platelet Volume 11.1 fL (9.4-12.4); Monocytes # 0.2 K/mcL (0.0-1.3); Monocytes % 7.6 %; Platelet Count 181 K/mcL (140-400); Red Blood Count 3.17 M/mcL (4.19-5.50); Red Cell Distribution Width 14.6 % (11.5-14.5); Segmented Neutrophils % 62.3 %
[2016-11-01] MEDS ORDERED: Finasteride 5 MG TABLET PO SCH (09:45)
[2016-11-01] MEDS ORDERED: Aspirin Enteric Coated 81 MG Tablet PO SCH (09:45)
[2016-11-01] MEDS ORDERED: Polyethylene Glycol 3350 255 GM POWDER PO SCH (09:45)
[2016-11-01] MEDS ORDERED: Ipratropium/Albuterol Neb 3 ML IH PRN (10:00)
[2016-11-01] MEDS: Sennosides/Docusate Sodium TABLET PO SCH ×2 (11:31→20:15)
[2016-11-01] MEDS: amLODIPine 5 MG TABLET PO SCH (11:31)
[2016-11-01] MEDS: *HR* OxyCODONE/APAP 5/325 TABLET PO PRN ×2 (11:33→20:13)
[2016-11-01] MEDS: Divalproex (12 HR) 250 MG TABLET PO SCH ×2 (11:35→20:15)
--- NOTE | 2016-11-01 15:05 | Discharge Summary ---
Date of Encounter: 11/01/16 Time of Encounter: 14:57 - Discharge Diagnosis (1) UTI (urinary tract infection) Priority: Primary Status: Acute Qualifiers: Urinary tract infection type: acute cystitis Hematuria presence: without hematuria Qualified Code(s): N30.00 - Acute cystitis without hematuria (2) Healthcare-associated pneumonia Priority: Primary Status: Acute (3) Sinus bradycardia Priority: Secondary Status: Acute (4) Altered mental status Priority: Secondary Status: Acute Qualifiers: Altered mental status type: delirium Qualified Code(s): R41.0 - Disorientation, unspecified (5) Dementia Priority: Secondary Status: Chronic Qualifiers: Dementia type: unspecified type Dementia behavioral disturbance: with behavioral disturbance Qualified Code(s): F03.91 - Unspecified dementia with behavioral disturbance (6) Chronic kidney disease Priority: Secondary Status: Chronic Qualifiers: Chronic kidney disease stage: stage 4 (severe) Qualified Code(s): N18.4 - Chronic kidney disease, stage 4 (severe) (7) Acute delirium Priority: Secondary Status: Acute (8) Anemia Priority: Secondary Status: Acute Qualifiers: Anemia type: unspecified type Qualified Code(s): D64.9 - Anemia, unspecified (9) DVT prophylaxis Priority: Secondary Status: Acute - Discharge Medications Prescriptions: Cefuroxime PO [Ceftin] 500 mg PO Q12HR #20 tablet Doxycycline Hyclate 100 mg PO BID #20 capsule metroNIDAZOLE [Flagyl] 500 mg PO TID #30 tablet Home Medications: Aspirin [Lo-Dose Aspirin EC] 81 mg PO DAILY 08/20/16 [History] Atorvastatin [Lipitor] 40 mg PO HS 08/20/16 [History] Bisacodyl [Dulcolax] 10 mg RC DAILY PRN 08/20/16 [History] Divalproex (12 HR) [Depakote (12 HR)] 250 mg PO BID 08/20/16 [History] Finasteride [Proscar] 5 mg PO DAILY 08/20/16 [History] Haloperidol [Haldol] 5 mg PO Q6H PRN 08/20/16 [History] Magnesium Hydroxide [Milk of Magnesia] 30 ml PO BID PRN 08/20/16 [History] Ranitidine HCl [Acid Cheesemaking Laborer] 150 mg PO QPM 08/20/16 [History] Sennosides/Docusate Sodium [Senna-Docusate Sodium Tablet] 2 tab PO BID PRN 08/20 [History] Tamsulosin HCl [Flomax] 0.4 mg PO BID 08/20/16 [History] risperiDONE [Risperidone] 0.5 mg PO HS 08/20/16 [History] Ipratropium/Albuterol Neb [Duoneb] 3 ml IH Q6HR PRN 10/29/16 [History] Sennosides/Docusate Sodium [Senna-S Tablet] 2 tab PO BID 10/29/16 [History] Cefuroxime PO [Ceftin] 500 mg PO Q12HR #20 tablet 11/01/16 [Rx] Doxycycline Hyclate 100 mg PO BID #20 capsule 11/01/16 [Rx] Heparin 5,000 unit SQ Q12HCO vial 11/01/16 [Rx] Polyethylene Glycol 3350 [MiraLAX] 17 gm PO DAILY 11/01/16 [History] amLODIPine [Norvasc] 10 mg PO DAILY tab 11/01/16 [Rx] metroNIDAZOLE [Flagyl] 500 mg PO TID #30 tablet 11/01/16 [Rx] Allergies/Adverse Reactions: Allergies baclofen Allergy (Verified 10/29/16 00:54) See Comments lisinopril Allergy (Verified 08/19/16 20:55) See Comments unknown reactions, pt unable to answer. allergy found on [facility] papers. 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 Falcon is a 66 year old male with known PMH of Dementia, wheel chair bound, [facility] resident, also has HTN, HLD< Chronic low back pain and chronic narcotic dependent who was Oxycodone, also has high risk for aspiration currently on pureed honey thick diet, who also had recent hospitalization at [facility] for [facility], now he was sent to our ER with fever, chills and hypoxia. Apparently pt was unresponsive in the ER with hypoxic respiratory failure mostly due to pneumonia and pain medication induced. he was given Narcan and he woke up, since then pt was combative and agitated Problem list: #1 left lower lobe pneumonia. Blood culture 1 out of 2 bottles positive for staph. Previous hospitalist felt it was contamination therefore repeat blood culture were done which are negative so far. He was on vancomycin cefepime and Levaquin. Levaquin and vancomycin were stopped first and he remained stable and white count remained low and now cefepime will be replaced by Ceftin and Flagyl. I will also add doxycycline for a few days. #2 UTI culture positive for Proteus sensitive to cephalosporin resistant to Levaquin #3 COPD continue nebulizer treatment #4 acute on chronic kidney disease his creatinine is around 2.4 and that seems to be his baseline and even less. #5 sinus bradycardia happened yesterday night hospitalist. Perhaps related to Haldol . His blood pressure remained stable.. Haldol has been a stop and low- dose Seroquel started which she tolerated well. His magnesium was low which has been supplemented. #6 hypomagnesemia magnesium supplemented and recheck magnesium is around 1.9 #7 dementia: patient POA has requested DNR/DNI status. Patient to bradycardia has resolved and now he can be discharged to the longterm. I was told that to [facility] will not accept transfer after 12 therefore he will leave tomorrow. - Time Spent with Patient Total time spent providing and/or coordinating discharge services: Greater than 30 minutes - Constitutional Vitals: Temp Pulse Resp BP Pulse Ox 97.9 F 51 18 143/88 100 11/01/16 03:39 11/01/16 03:39 11/01/16 03:39 11/01/16 03:39 11/01/16 03:39 General appearance: Present: A&O X 1, pleasant, no acute distress - Head Head exam: Present: atraumatic, normocephalic - Eye Eye exam: Present: PERRL, conjuntiva pink, sclera anicteric Pupils: Present: PERRL - Neck Neck exam general surgery: Present: supple, trachea midline. Absent: lymphadenopathy - Respiratory Respiratory exam: Present: CTAB. Absent: accessory muscle use, rales, rhonchi, wheezes - Cardiovascular Cardiovascular exam: Present: RRR, +S1, +S2. Absent: diastolic murmur, gallop, rubs, systolic murmur - GI/Abdominal GI/Abdominal exam: Present: normal bowel sounds, soft, no peritoneal signs. Absent: distended, tenderness - Extremities Exam Extremities exam: Present: warm, radial pulses palpable and symmetrical. Absent : calf tenderness, cyanotic, pedal edema - Neurological Exam Neurological exam: Present: no focal deficits. Absent: pronater drift, facial droop, speech deficit Additional comments: Awake confused screaming but does respond to simple commands and questions and can calm down when some one pays attention. Otherwise non focal exam. - Skin Skin exam: Present: dry, intact
[2016-11-01] MEDS: Famotidine 20 MG TABLET PO SCH (20:14)
[2016-11-01] MEDS ORDERED: risperiDONE 0.25 MG TABLET PO SCH (21:00)
[2016-11-02] MEDS: Insulin LISPRO 300 UNITS/3 ML VIAL SQ SCH ×3 (00:49→06:32)
[2016-11-02] MEDS: Haloperidol Lactate 5 MG/ML VIAL IVP PRN (00:56)
[2016-11-02] MEDS: *HR* OxyCODONE/APAP 5/325 TABLET PO PRN (03:47)
[2016-11-02 03:52] VITALS: BP 150/84
[2016-11-02 05:02] LABS: Basophils % 0.8 %; Eosinophils # 0.2 K/mcL (0.0-0.6); Eosinophils % 5.3 %; Hematocrit 27.8 % (37.5-50.1); Hemoglobin 8.8 g/dL (12.9-16.9); Immature Granulocytes % 0.6 % (0-4); Lymphocytes # 1.1 K/mcL (0.6-4.6); Lymphocytes % 30.2 %; Mean Corpuscular HGB Conc 31.7 g/dL (31.6-35.5); Mean Corpuscular Hemoglobin 28.3 pg (28.0-33.3); Mean Corpuscular Volume 89.4 fL (83.0-100.0); Mean Platelet Volume 11.2 fL (9.4-12.4); Monocytes # 0.3 K/mcL (0.0-1.3); Platelet Count 186 K/mcL (140-400); Red Blood Count 3.11 M/mcL (4.19-5.50); Red Cell Distribution Width 14.5 % (11.5-14.5); Segmented Neutrophils % 55.1 %
[2016-11-02 05:12] LABS: Albumin 2.5 g/dL (3.5-5.0); Albumin/Globulin Ratio 0.8 (1.1-2.2); Bilirubin,Total 0.5 mg/dL (0.2-1.2); Calcium 9.5 mg/dL (8.6-10.8); Globulin 3.1 g/dL (2.4-3.5); Magnesium 1.8 mg/dL (1.6-2.6); Potassium 4.3 mEq/L (3.5-4.5); Total Protein 5.6 g/dL (6.0-8.3)
[2016-11-02 05:58] LABS: Platelet Estimate Normal (Normal)
[2016-11-02] MEDS: *HR* Heparin 5,000 UNIT/ML VIAL SQ SCH (06:31)
[2016-11-02] MEDS: Cefepime HCl 1,000 MG in D5% in Water (Mini-Bag+) 100 ML IVPB SCH (06:31)
--- NOTE | 2016-11-02 08:31 | Physician Discharge Referral ---
ExtendedCare Referral Info Transfer To: [facility] Provider in Charge: JACK Provider in Charge after Transfer: PCP Institutional Level of Care: Skilled - Diagnosis (1) UTI (urinary tract infection) Status: Acute (2) Healthcare-associated pneumonia Status: Acute (3) Sinus bradycardia Status: Acute (4) Altered mental status Status: Acute (5) Dementia Status: Chronic (6) Chronic kidney disease Status: Chronic (7) Acute delirium Status: Acute (8) Anemia Status: Acute (9) DVT prophylaxis Status: Acute - Transfer Medications Prescriptions: Cefuroxime PO [Ceftin] 500 mg PO Q12HR #20 tablet Doxycycline Hyclate 100 mg PO BID #20 capsule metroNIDAZOLE [Flagyl] 500 mg PO TID #30 tablet Home Medications: Aspirin [Lo-Dose Aspirin EC] 81 mg PO DAILY 08/20/16 [History] Atorvastatin [Lipitor] 40 mg PO HS 08/20/16 [History] Bisacodyl [Dulcolax] 10 mg RC DAILY PRN 08/20/16 [History] Divalproex (12 HR) [Depakote (12 HR)] 250 mg PO BID 08/20/16 [History] Finasteride [Proscar] 5 mg PO DAILY 08/20/16 [History] Haloperidol [Haldol] 5 mg PO Q6H PRN 08/20/16 [History] Magnesium Hydroxide [Milk of Magnesia] 30 ml PO BID PRN 08/20/16 [History] Ranitidine HCl [Acid Deep Tissue Massage Therapist] 150 mg PO QPM 08/20/16 [History] Sennosides/Docusate Sodium [Senna-Docusate Sodium Tablet] 2 tab PO BID PRN 08/20 [History] Tamsulosin HCl [Flomax] 0.4 mg PO BID 08/20/16 [History] risperiDONE [Risperidone] 0.5 mg PO HS 08/20/16 [History] Ipratropium/Albuterol Neb [Duoneb] 3 ml IH Q6HR PRN 10/29/16 [History] Sennosides/Docusate Sodium [Senna-S Tablet] 2 tab PO BID 10/29/16 [History] Cefuroxime PO [Ceftin] 500 mg PO Q12HR #20 tablet 11/01/16 [Rx] Doxycycline Hyclate 100 mg PO BID #20 capsule 11/01/16 [Rx] Heparin 5,000 unit SQ Q12HCO vial 11/01/16 [Rx] Polyethylene Glycol 3350 [MiraLAX] 17 gm PO DAILY 11/01/16 [History] amLODIPine [Norvasc] 10 mg PO DAILY tab 11/01/16 [Rx] metroNIDAZOLE [Flagyl] 500 mg PO TID #30 tablet 11/01/16 [Rx] Allergies/Adverse Reactions: baclofen Allergy (Verified 10/29/16 00:54) See Comments lisinopril Allergy (Verified 08/19/16 20:55) See Comments unknown reactions, pt unable to answer. [facility]. - Respiratory Orders Smoking Cessation: Smoking cessation has been advised. For more information, call the [employer] Tobacco Quit Line at 7-673-FMID-NOW. - History and Physical History/Physical reviewed & approved w/add comments: SEE DISCHARGE SUMMARY - Mobility Orders Other - Rehabiliation Orders Rehab Potential: Fair - Treatments Skin tear care topically daily PRN per policy, May check for fecal impaction rectally daily PRN CERTIFICATION: I certify that the transfer of the above named patient to an Extended Care Facility is necessary for the continuing treatment of the diagnosis listed. The above information is true and accurate reflection of patient's current condition. Confidential - Redisclosure prohibited without a patient's written consent.
--- NOTE | 2016-11-02 08:38 | Internal Med Progress Note ---
Date of Encounter: 11/02/16 Time of Encounter: 08:35 - Assessment and plan (1) UTI (urinary tract infection) Current Visit: Yes Status: Acute Qualifiers: Urinary tract infection type: acute cystitis Hematuria presence: without hematuria Qualified Code(s): N30.00 - Acute cystitis without hematuria (2) Healthcare-associated pneumonia Current Visit: Yes Status: Acute (3) Sinus bradycardia Current Visit: Yes Status: Acute (4) Altered mental status Current Visit: Yes Status: Acute Qualifiers: Altered mental status type: delirium Qualified Code(s): R41.0 - Disorientation, unspecified (5) Dementia Current Visit: Yes Status: Chronic Qualifiers: Dementia type: unspecified type Dementia behavioral disturbance: with behavioral disturbance Qualified Code(s): F03.91 - Unspecified dementia with behavioral disturbance (6) Chronic kidney disease Current Visit: Yes Status: Chronic Qualifiers: Chronic kidney disease stage: stage 4 (severe) Qualified Code(s): N18.4 - Chronic kidney disease, stage 4 (severe) (7) Acute delirium Current Visit: Yes Status: Acute (8) Anemia Current Visit: Yes Status: Acute Qualifiers: Anemia type: unspecified type Qualified Code(s): D64.9 - Anemia, unspecified (9) DVT prophylaxis Current Visit: Yes Status: Acute - Subjective Interval history: This is a 66 y/o M with known PMH of Dementia, wheel chair bound, [facility] [place] SN[facility] resident, also has HTN, HLD< Chronic low back pain and chronic narcotic dependent who was Oxycodone, also has high risk for aspiration currently on pureed honey thick diet, who also had recent hospitalization at [facility] for pneumonia, now he was sent to our ER with fever, chills and hypoxia. Apparently pt was unresponsive in the ER with hypoxic respiratory failure mostly due to pneumonia and pain medication induced. he was given Narcan and he woke up, since then pt was combative and agitated Problem list: #1 left lower lobe pneumonia. Blood culture 1 out of 2 bottles positive for staph. Previous hospitalist felt it was contamination therefore repeat blood culture were done which are negative so far. He is on vancomycin cefepime and Levaquin. I will DC Levaquin and vancomycin and just keep him on cefepime and follow CBC. #2 UTI culture positive for Proteus sensitive to cephalosporin resistant to Levaquin #3 COPD continue nebulizer treatment #4 acute on chronic kidney disease his creatinine is around 1 and that seems to be better than his baseline #5 sinus bradycardia resolved. Initially it was thought that it was due to antipsychotic medication and Haldol was stopped and started Seroquel was continued at low dose and he seems to tolerate it well and his heart rate remains in the range of 60s. #6 hypomagnesemia magnesium resolved #7 dementia patient POA has requested DNR/DNI status. Disposition: Patient labwork reviewed his white cell count creatinine and hemoglobin are almost in a stable range. Patient plans to be discharged today. - Constitutional Vitals: Temp Pulse Resp BP Pulse Ox 97.6 F 66 19 150/84 98 11/02/16 03:50 11/02/16 03:50 11/02/16 03:50 11/02/16 03:50 11/02/16 03:50 General appearance: Present: A&O X 1, pleasant, no acute distress - Head Head exam: Present: atraumatic, normocephalic - Eye Eye exam: Present: PERRL, conjuntiva pink, sclera anicteric Pupils: Present: PERRL - Neck Neck exam general surgery: Present: supple, trachea midline. Absent: lymphadenopathy - Respiratory Respiratory exam: Present: CTAB. Absent: accessory muscle use, rales, rhonchi, wheezes - Cardiovascular Cardiovascular exam: Present: RRR, +S1, +S2. Absent: diastolic murmur, gallop, rubs, systolic murmur - GI/Abdominal GI/Abdominal exam: Present: normal bowel sounds, soft, no peritoneal signs. Absent: distended, tenderness - Extremities Exam Extremities exam: Present: warm, radial pulses palpable and symmetrical. Absent : calf tenderness, cyanotic, pedal edema - Neurological Exam Additional comments: Brief Examination done. No change noted. Patient is awake and follows simple commands and can carry on very simple conversation but it does not seem like that he is oriented to place person or time. This seems like his baseline. Occasionally he gets agitated but can be calmed down and reassurance without any medication. - Skin Skin exam: Present: dry, intact Internal Medicine: Result - Labs CBC & Chem 7: 11/02/16 04:41 11/02/16 04:41 Labs: Short CBC 11/01/16 11/02/16 Range/Units 07:47 04:41 WBC 3.2 L 3.6 L (4.3-11.1) K/mcL Hgb 9.0 L 8.8 L (12.9-16.9) g/dL Hct 29.0 L 27.8 L (37.5-50.1) % Plt Count 181 186 (140-400) K/mcL Neutrophils # 2.0 2.0 (1.6-8.9) K/mcL BMP 11/01/16 11/02/16 07:47 04:41 Sodium 139 139 Potassium 4.0 4.3 Chloride 107 110 H Carbon Dioxide 25 21 BUN 43 H 39 H Creatinine 2.36 H 2.31 H Glucose 110 H 148 H Calcium 9.7 9.5 Liver Function 11/01/16 11/02/16 Range/Units 07:47 04:41 Total Bilirubin 0.5 0.5 (0.2-1.2) mg/dL AST 14 14 (5-34) Units/L ALT 15 14 (0-55) Units/L Alkaline Phosphatase 89 84 (38-126) Units/L Albumin 2.6 L 2.5 L (3.5-5.0) g/dL - ABG Interpretation ABG results: ABG ABG pH 7.41 pH Units (7.32-7.45) 10/28/16 23:25 ABG pCO2 38 mmHg (35-45) 10/28/16 23:25 ABG pO2 57 mmHg (85-104) L 10/28/16 23:25 ABG O2 Saturation 90 % (95-98) L 10/28/16 23:25 PT/INR, D-dimer PT 13.0 Seconds (9.4-12.1) H 10/28/16 22:00 Consult Discharge Plan - Plan Instructions: Urinary Tract Infection in Men (DC), Chronic Kidney Disease (DC) , Chronic Kidney Disease (GEN), Sepsis (DC), Pneumonia (DC), 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
== END 2016-11-02 09:57 | DRG 871 ==
LOC: EMEROO 21:44 → 2NENU 10-29 00:57
PROVIDERS: ADMIT Internal Medicine Hematology & Oncology; ATTEND Internal Medicine